=== PATIENT | male | born 1950 | race Caucasian/White ===

== ENCOUNTER 2017-03-08 15:06 | Inpatient (IN) ==
--- NOTE | 2017-03-08 15:47 | Emergency Department Note ---
Disposition Clinical Impression: Altered mental status Qualifiers: Altered mental status type: unspecified Qualified Code(s): R41.82 - Altered mental status, unspecified Chronic kidney disease Qualifiers: Chronic kidney disease stage: unspecified stage Qualified Code(s): N18.9 - Chronic kidney disease, unspecified Disposition: Admitted As Inpatient Condition: Fair Time of Disposition: 18:03 Altered Mental Status HPI - General Chief Complaint: ED Altered Mental Status Stated Complaint: AMS Time Seen by Provider: 03/08/17 15:20 Source: patient Mode of arrival: private vehicle Limitations: no limitations Nursing Notes Reviewed: Yes Vital Signs Reviewed: Yes - History of Present Illness HPI Narrative: 67-year-old male with a history of aortic vascular disease status post bypass, CAD, diabetes, hypertension presents for evaluation of altered mental status in the care of the family. Family states his last known well was approximately 2 days ago. That was last on the family saw the patient. Family became concerned earlier today when they went and to the living room and found the patient difficulty ambulating and confused with questioning. Family states that he was not acting appropriately. Patient denies any chest pain or short of breath. Family denies any fevers. Denies any abdominal pain. No nausea or vomiting. Denies any trauma. Patient is on Plavix with no other anticoagulation. Family states that symptoms have been improving. - Related Data Home Medications Medication Instructions Recorded Confirmed Ascorbate Calcium [Vitamin C] 500 mg PO DAILY 11/19/15 11/19/15 Aspirin 81 mg PO DAILY 11/19/15 11/19/15 Azelastine HCl 1 drop OP BID 11/19/15 11/19/15 Citalopram Hydrobromide 20 mg PO HS 11/19/15 11/19/15 [Citalopram HBr] Clopidogrel [Plavix] 75 mg PO DAILY 11/19/15 11/19/15 Fluticasone Propionate [Flovent 1 - 2 puff IH BID 11/19/15 11/19/15 Diskus] Linagliptin [Tradjenta] 5 mg PO DAILY 11/19/15 11/19/15 Metoprolol [Lopressor] 50 mg PO BID 11/19/15 11/19/15 Omeprazole [PriLOSEC] 20 mg PO DAILY 11/19/15 11/19/15 Rosuvastatin [Crestor] 40 mg PO DAILY 11/19/15 11/19/15 Tamsulosin [Flomax] 0.4 mg PO DAILY 11/19/15 11/19/15 Allergies Allergy/AdvReac Type Severity Reaction Status Date / Time No Known Allergies Allergy Verified 11/17/15 19:23 All systems ED: reviewed and negative except as stated. Constitutional: Reports: as per HPI. Denies: fever Eyes: Reports: as per HPI ENT ED: Reports: as per HPI Cardiovascular: Reports: as per HPI. Denies: chest pain Respiratory: Reports: as per HPI. Denies: cough, dyspnea Gastrointestinal: Reports: as per HPI. Denies: abdominal pain, nausea, vomiting Genitourinary: Reports: as per HPI Musculoskeletal: Reports: as per HPI Integumentary: Reports: as per HPI Neurological: Reports: as per HPI. Denies: headache, weakness Psychiatric: Reports: as per HPI Endocrine: Reports: as per HPI Hematological/Lymphatic: Reports: as per HPI Past Medical History - Past Medical History Medical history: Reports: coronary artery disease, diabetes, hyperlipidemia, hypertension, myocardial infarction Surgical history: Reports: cholecystectomy, vascular surgery (aortobifemoral bypass.) - Social History Smoking Status: Current every day smoker Smokeless Tobacco Status: No Alcohol use: Reports: none Drug use: Reports: none Physical Exam - General Limitations: no limitations General appearance: alert, in no apparent distress - Head Head exam: atraumatic, normocephalic, normal inspection - Eye Eye exam: Present: normal appearance, PERRL, EOMI, other (Right eye lateral gaze palsy.). Absent: miosis, mydriasis - ENT ENT exam: normal exam, mucous membranes moist - Neck Neck exam: Present: normal inspection, trachea midline - Chest Chest inspection: Present: normal inspection - Respiratory Respiratory exam: Present: normal lung sounds bilaterally - Cardiovascular Cardiovascular exam: Present: regular rate - Abdominal Exam Abdominal exam: Present: soft, Non-Tender. Absent: distention, guarding, rebound, rigidity - Extremities Exam Extremities exam: Present: normal inspection. Absent: pedal edema - Back Exam Back exam: Present: normal inspection, full ROM. Absent: tenderness - Neurological Exam Neurological exam: Present: alert, CN II-XII intact - Expanded Neurological Exam Patient oriented to: Present: person, place, time Speech: Present: fluid speech Cranial nerves: EOM function (II, III, IV, ): Normal, facial sensation (V): Normal, facial palsy (VII): Normal, spinal accessory function (XI): Normal, tongue deviation (XII): Normal Cerebellar function: finger to nose: Normal (Left-sided pressure and hand tremor ) Motor strength - LUE: 5/5 Motor strength - RUE: 5/5 Motor strength - LLE: 5/5 Motor strength - RLE: 5/5 Coma Scale Eye Opening: Spontaneous Coma Scale Motor Response: Obeys Commands Coma Scale Verbal Response: Confused Coma Scale Total: 14 - Skin Skin exam: Present: warm, dry, intact, normal color Course Course Narrative: Patient seen and examined. Patient's in no acute distress. Patient is not a stroke alert as the last known well was a couple days ago. Patient will get an extensive evaluation with neuro imaging, labs, urinalysis and disposition pending. - Reevaluation(s) Reevaluation #1: Patient seen and examined. Patient appears to be no acute distress. Patient is alert to person place time but not alert situation. Patient cannot recall why he is in the hospital. Time: 17:20 Vital Signs Temperature 98.3 F 03/08/17 15:11 Pulse Rate 108 03/08/17 15:11 Respiratory Rate 16 03/08/17 15:11 Blood Pressure 126/76 03/08/17 15:11 O2 Sat by Pulse Oximetry 95 03/08/17 15:11 Temperature 98.3 F 03/08/17 15:11 Pulse Rate 108 03/08/17 15:11 Respiratory Rate 16 03/08/17 15:11 Blood Pressure 126/76 03/08/17 15:11 O2 Sat by Pulse Oximetry 95 03/08/17 15:11 Oxygen Delivery Oxygen Delivery Room Air Altered Mental Status - MDM Narrative Medical decision making narrative: 67-year-old male presents for acute alteration in mental status. Patient was not a stroke alert as his last known well was 2 days ago. Patient does exhibit some confusion on exam. Patient's GCS of 14. Patient has no focal neurologic deficit. Patient had neuroimaging as well as a chest x-ray and laboratory evaluation. Patient's head CT shows no acute intracranial abnormality. Patient 's chest x-ray shows no acute disease. Patient's chemistries show chronic kidney disease not significantly changed from baseline. Patient's urine drug screen is negative. Patient's CBC shows no signs of leukocytosis or infection. Patient does not exhibit any meningitis signs or symptoms. The etiology of the patient's altered mental status is unclear at this time. Patient would require further evaluation in the hospital. Patient would not need further evaluation possible MRI of the brain ruling out any type ischemic event. - Lab Data Lab results reviewed: Yes I reviewed the patient's lab results. Result diagrams: 03/08/17 15:32 03/08/17 15:32 Lab Results 03/08/17 03/08/17 03/08/17 Range/Units 15:32 15:32 15:32 WBC 6.9 (4.3-11.1) K/mcL RBC 4.39 (4.19-5.50) M/mcL Hgb 14.8 (12.9-16.9) g/dL Hct 43.1 (37.5-50.1) % MCV 98.2 (83.0-100.0) fL MCH 33.7 H (28.0-33.3) pg MCHC 34.3 (31.6-35.5) g/dL RDW 12.7 (11.5-14.5) % Plt Count 115 L (140-400) K/mcL MPV 9.6 (9.4-12.4) fL Immature Gran % 0.3 (0-4) % Seg Neutrophils % 75.7 % Lymphocytes % 11.7 % Monocytes % 11.4 % Eosinophils % 0.3 % Basophils % 0.6 % Neutrophils # 5.2 (1.6-8.9) K/mcL Lymphocytes # 0.8 (0.6-4.6) K/mcL Monocytes # 0.8 (0.0-1.3) K/mcL Eosinophils # 0.0 (0.0-0.6) K/mcL Basophils # 0.0 (0.0-0.2) K/mcL PT 12.1 (9.4-12.1) Seconds INR 1.1 APTT 26.4 (26.0-36.0) Seconds Sodium 138 (136-145) mEq/L Potassium 4.0 (3.5-5.1) mEq/L Chloride 105 (98-107) mEq/L Carbon Dioxide 23 (23-29) mEq/L BUN 22 (8-23) mg/dL Creatinine 1.85 H (0.70-1.30) mg/dL Est GFR ( Amer) 44 L (> 60) Est GFR (Non-Af Amer) 36 L (> 60) BUN/Creatinine Ratio 12 (6-26) Glucose 162 H (70-105) mg/dL Calculated Osmolality 293 (280-300) Calcium 9.9 (8.6-10.3) mg/dL Total Bilirubin 0.9 (0.3-1.0) mg/dL Direct Bilirubin 0.2 (0.0-0.2) mg/dL Indirect Bilirubin 0.7 (0.0-1.2) mg/dL AST 15 (13-39) Units/L ALT 11 (7-52) Units/L Alkaline Phosphatase 69 (34-104) Units/L Ammonia (16-53) mcmol/L Creatine Kinase 96 (30-223) Units/L Troponin I (< 0.04) ng/mL Serum Total Protein 7.2 (6.4-8.9) g/dL Albumin 4.0 (3.5-5.7) g/dL Globulin 3.2 (2.4-3.5) g/dL Albumin/Globulin Ratio 1.3 (1.1-2.2) TSH 0.319 L (0.340-5.600) mcIU/mL Urine Color (Yellow) Urine Clarity (Clear) Urine pH (5.0-8.0) pH Units Ur Specific [place] (1.010-1.025) Urine Protein (Neg-Trace) mg/dL Urine Glucose (UA) (Normal) mg/dL Urine Ketones (Negative) mg/dL Urine Blood (Negative) Urine Nitrite (Negative) Urine Bilirubin (Negative) Urine Urobilinogen (Normal) mg/dL Ur Leukocyte Esterase (Negative) Urine Microscopic RBC (0-3) per hpf Urine Microscopic WBC (0-3) per hpf Ur Squamous Epith Cells (None-Few) per lpf Urine Bacteria (None-Few) per hpf Hyaline Casts (None-Few) per lpf Ur Culture Indicated? (NO) Salicylates < 5.0 L (15.0-30.0) mg/dL Urine Opiates Screen (Ljgtlq=820) ng/mL Acetaminophen < 1.0 L (10-30) mcg/mL Ur Barbiturates Screen (Zxbenk=312) ng/mL Ur Phencyclidine Scrn (Cutoff=25) ng/mL Ur Amphetamines Screen ([place]=6844) ng/mL U Benzodiazepines Scrn (Lkuirz=039) ng/mL Urine Cocaine Screen (Cutoff= 300) ng/mL U Marijuana (THC) Screen (Cutoff = 50) ng/mL Ethyl Alcohol < 10 (0-10) mg/dL 03/08/17 03/08/17 03/08/17 Range/Units 15:32 15:32 16:40 WBC (4.3-11.1) K/mcL RBC (4.19-5.50) M/mcL Hgb (12.9-16.9) g/dL Hct (37.5-50.1) % MCV (83.0-100.0) fL MCH (28.0-33.3) pg MCHC (31.6-35.5) g/dL RDW (11.5-14.5) % Plt Count (140-400) K/mcL MPV (9.4-12.4) fL Immature Gran % (0-4) % Seg Neutrophils % % Lymphocytes % % Monocytes % % Eosinophils % % Basophils % % Neutrophils # (1.6-8.9) K/mcL Lymphocytes # (0.6-4.6) K/mcL Monocytes # (0.0-1.3) K/mcL Eosinophils # (0.0-0.6) K/mcL Basophils # (0.0-0.2) K/mcL PT (9.4-12.1) Seconds INR APTT (26.0-36.0) Seconds Sodium (136-145) mEq/L Potassium (3.5-5.1) mEq/L Chloride (98-107) mEq/L Carbon Dioxide (23-29) mEq/L BUN (8-23) mg/dL Creatinine (0.70-1.30) mg/dL Est GFR ( Amer) (> 60) Est GFR (Non-Af Amer) (> 60) BUN/Creatinine Ratio (6-26) Glucose (70-105) mg/dL Calculated Osmolality (280-300) Calcium (8.6-10.3) mg/dL Total Bilirubin (0.3-1.0) mg/dL Direct Bilirubin (0.0-0.2) mg/dL Indirect Bilirubin (0.0-1.2) mg/dL AST (13-39) Units/L ALT (7-52) Units/L Alkaline Phosphatase (34-104) Units/L Ammonia 32 (16-53) mcmol/L Creatine Kinase (30-223) Units/L Troponin I < 0.03 (< 0.04) ng/mL Serum Total Protein (6.4-8.9) g/dL Albumin (3.5-5.7) g/dL Globulin (2.4-3.5) g/dL Albumin/Globulin Ratio (1.1-2.2) TSH (0.340-5.600) mcIU/mL Urine Color Dark Yellow (Yellow) Urine Clarity Clear (Clear) Urine pH 5.5 (5.0-8.0) pH Units Ur Specific [place] 1.026 H (1.010-1.025) Urine Protein 30 H (Neg-Trace) mg/dL Urine Glucose (UA) 100 H (Normal) mg/dL Urine Ketones Negative (Negative) mg/dL Urine Blood Small H (Negative) Urine Nitrite Negative (Negative) Urine Bilirubin Small H (Negative) Urine Urobilinogen Normal (Normal) mg/dL Ur Leukocyte Esterase Negative (Negative) Urine Microscopic RBC 15-30 H (0-3) per hpf Urine Microscopic WBC 0-3 (0-3) per hpf Ur Squamous Epith Cells None Seen (None-Few) per lpf Urine Bacteria None Seen (None-Few) per hpf Hyaline Casts None Seen (None-Few) per lpf Ur Culture Indicated? NO (NO) Salicylates (15.0-30.0) mg/dL Urine Opiates Screen ([place]uhl[place]=417) ng/mL Acetaminophen (10-30) mcg/mL Ur Barbiturates Screen (Eypyrz=695) ng/mL Ur Phencyclidine Scrn (Cutoff=25) ng/mL Ur Amphetamines Screen (Wijbzp=9361) ng/mL U Benzodiazepines Scrn (Neugra=461) ng/mL Urine Cocaine Screen (Cutoff= 300) ng/mL U Marijuana (THC) Screen (Cutoff = 50) ng/mL Ethyl Alcohol (0-10) mg/dL //17 Range/Units 16:40 WBC (4.3-11.1) K/mcL RBC (4.19-5.50) M/mcL Hgb (12.9-16.9) g/dL Hct (37.5-50.1) % MCV (83.0-100.0) fL MCH (28.0-33.3) pg MCHC (31.6-35.5) g/dL RDW (11.5-14.5) % Plt Count (140-400) K/mcL MPV (9.4-12.4) fL Immature Gran % (0-4) % Seg Neutrophils % % Lymphocytes % % Monocytes % % Eosinophils % % Basophils % % Neutrophils # (1.6-8.9) K/mcL Lymphocytes # (0.6-4.6) K/mcL Monocytes # (0.0-1.3) K/mcL Eosinophils # (0.0-0.6) K/mcL Basophils # (0.0-0.2) K/mcL PT (9.4-12.1) Seconds INR APTT (26.0-36.0) Seconds Sodium (136-145) mEq/L Potassium (3.5-5.1) mEq/L Chloride (98-107) mEq/L Carbon Dioxide (23-29) mEq/L BUN (8-23) mg/dL Creatinine (0.70-1.30) mg/dL Est GFR ( Amer) (> 60) Est GFR (Non-Af Amer) (> 60) BUN/Creatinine Ratio (6-26) Glucose (70-105) mg/dL Calculated Osmolality (280-300) Calcium (8.6-10.3) mg/dL Total Bilirubin (0.3-1.0) mg/dL Direct Bilirubin (0.0-0.2) mg/dL Indirect Bilirubin (0.0-1.2) mg/dL AST (13-39) Units/L ALT (7-52) Units/L Alkaline Phosphatase (34-104) Units/L Ammonia (16-53) mcmol/L Creatine Kinase (30-223) Units/L Troponin I (< 0.04) ng/mL Serum Total Protein (6.4-8.9) g/dL Albumin (3.5-5.7) g/dL Globulin (2.4-3.5) g/dL Albumin/Globulin Ratio (1.1-2.2) TSH (0.340-5.600) mcIU/mL Urine Color (Yellow) Urine Clarity (Clear) Urine pH (5.0-8.0) pH Units Ur Specific [place] (1.010-1.025) Urine Protein (Neg-Trace) mg/dL Urine Glucose (UA) (Normal) mg/dL Urine Ketones (Negative) mg/dL Urine Blood (Negative) Urine Nitrite (Negative) Urine Bilirubin (Negative) Urine Urobilinogen (Normal) mg/dL Ur Leukocyte Esterase (Negative) Urine Microscopic RBC (0-3) per hpf Urine Microscopic WBC (0-3) per hpf Ur Squamous Epith Cells (None-Few) per lpf Urine Bacteria (None-Few) per hpf Hyaline Casts (None-Few) per lpf Ur Culture Indicated? (NO) Salicylates (15.0-30.0) mg/dL Urine Opiates Screen Negative (Kskhmr=844) ng/mL Acetaminophen (10-30) mcg/mL Ur Barbiturates Screen Negative (Gxfsei=760) ng/mL Ur Phencyclidine Scrn Negative (Cutoff=25) ng/mL Ur Amphetamines Screen Negative (Gtcazs=4778) ng/mL U Benzodiazepines Scrn Negative (Jieeru=649) ng/mL Urine Cocaine Screen Negative (Cutoff= 300) ng/mL U Marijuana (THC) Screen Negative (Cutoff = 50) ng/mL Ethyl Alcohol (0-10) mg/dL - Radiology Data Radiology results reviewed: Yes I reviewed the patient's radiology results. Chest X-Ray 03/08/17 15:37 IMPRESSION: No acute cardiopulmonary disease. D/ / Bossman Gomez MD / Bossman Gomez MD Interpreting Provider: Bossman Gomez MD Head CT 03/08/17 15:37 IMPRESSION: No acute intracranial abnormality is detected. Moderate age related changes in the brain are noted. Brain MRI would more sensitively detect subtle changes of the brain including ischemia and should be considered if symptoms persist. D/ / Felix Gant MD / Felix Gant MD Interpreting Provider: Felix Gant MD - EKG Data EKG attestation: Yes I reviewed and interpreted this EKG. EKG shows normal: sinus rhythm Rate: normal Rhythm: NSR [place]/QRS: normal Q waves: aVR, v1 Interpretation: no acute changes, nonspecific ST-T wave changes TPA Checklist - LKW: 3-4.5 hrs Add. Warnings/Precautions Patient/family understanding: The patient/family members have been counseled and understood the risk, benefit , and alternatives of treatment. Rafat - Rafat Situation: Demographics Background: Presenting Complaint Assessment: Vital Signs, Course and respsone to treatment, Patient/Family Expectation Recommendation: Barrier(s) to disposition, Recommendation based on pending studies, treatments, or consults Rafat Report Given to: Dr. Donavon Douglass Repor Time: 17:58 Attestation Statement - Attestation Attestation: I examined this patient and my medical decision-making was reviewed with the Resident Physician. I agree with the documented findings, disposition and treatment plan as described except to the extent set forth below. patient with ams, denies ETOH or other drug use. No neuro deficits on arrival. Plan to admit for further work up for AMS. No metabolic derangement identified.
[2017-03-08 16:02] LABS: Basophils % 0.6 %; Eosinophils % 0.3 %; Hematocrit 43.1 % (37.5-50.1); Hemoglobin 14.8 g/dL (12.9-16.9); Immature Granulocytes % 0.3 % (0-4); Lymphocytes % 11.7 %; Mean Corpuscular HGB Conc 34.3 g/dL (31.6-35.5); Mean Corpuscular Hemoglobin 33.7 pg (28.0-33.3); Mean Corpuscular Volume 98.2 fL (83.0-100.0); Mean Platelet Volume 9.6 fL (9.4-12.4); Monocytes % 11.4 %; Platelet Count 115 K/mcL (140-400); Red Blood Count 4.39 M/mcL (4.19-5.50); Red Cell Distribution Width 12.7 % (11.5-14.5); Segmented Neutrophils % 75.7 %
[2017-03-08 16:03] LABS: Lymphocytes # 0.8 K/mcL (0.6-4.6); Monocytes # 0.8 K/mcL (0.0-1.3); Neutrophils # 5.2 K/mcL (1.6-8.9)
[2017-03-08 16:09] LABS: INR 1.1; Prothrombin Time 12.1 Seconds (9.4-12.1)
[2017-03-08 16:11] LABS: Alanine Aminotransferase 11 Units/L (7-52); Albumin/Globulin Ratio 1.3 (1.1-2.2); Alkaline Phosphatase 69 Units/L (34-104); Aspartate Amino Transferase 15 Units/L (13-39); BUN/Creatinine Ratio 12 (6-26); Bilirubin,Direct 0.2 mg/dL (0.0-0.2); Bilirubin,Indirect 0.7 mg/dL (0.0-1.2); Bilirubin,Total 0.9 mg/dL (0.3-1.0); Blood Urea Nitrogen 22 mg/dL (8-23); Calcium 9.9 mg/dL (8.6-10.3); Carbon Dioxide 23 mEq/L (23-29); Chloride 105 mEq/L (98-107); Creatine Kinase 96 Units/L (30-223); Globulin 3.2 g/dL (2.4-3.5); Glucose 162 mg/dL (70-105); Osmolality,Calculated 293 (280-300); Sodium 138 mEq/L (136-145); Total Protein 7.2 g/dL (6.4-8.9); eGFR For African Americans 44 (> 60); eGFR For Non-African Americans 36 (> 60)
[2017-03-08 16:12] LABS: Activated Partial Thrombo Time 26.4 Seconds (26.0-36.0)
[2017-03-08 16:57] LABS: Bilirubin,Urine Small (Negative); Blood,Urine Small (Negative); Clarity,Urine Clear (Clear); Color,Urine Dark Yellow (Yellow); Glucose,Urine (UA) 100 mg/dL (Normal); Ketones,Urine Negative (Negative); Leukocyte Esterase,Urine Negative (Negative); Nitrite,Urine Negative (Negative); PH,Urine 5.5 pH Units (5.0-8.0); Protein,Urine 30 mg/dL (Neg-Trace); Specific Gravity,Urine 1.026 (1.010-1.025); Urobilinogen,Urine Normal (Normal)
[2017-03-08 16:59] LABS: Bacteria,Urine None Seen per hpf (None-Few); Hyaline Casts,Urine None Seen per lpf (None-Few); RBC,Urine 15-30 per hpf (0-3); Squamous Epithelial Cell,Urine None Seen per lpf (None-Few); WBC,Urine 0-3 per hpf (0-3)
[2017-03-08 17:04] LABS: Amphetamine Screen,Urine Negative ng/mL (Cutoff=1000); Barbiturate Screen,Urine Negative ng/mL (Cutoff=200); Benzodiazepines Screen,Urine Negative ng/mL (Cutoff=200); Cannabinoid Screen,Urine Negative ng/mL (Cutoff = 50); Cocaine Screen,Urine Negative ng/mL (Cutoff= 300); Opiate Screen,Urine Negative ng/mL (Cutoff=300); Phencyclidine Screen,Urine Negative ng/mL (Cutoff=25)
[2017-03-08 17:33] LABS: Acetaminophen < 1.0 mcg/mL (10-30); Ethanol < 10 mg/dL (0-10); Salicylate < 5.0 mg/dL (15.0-30.0)
[2017-03-08 17:41] LABS: Thyroid Stimulating Hormone 0.319 mcIU/mL (0.340-5.600)
--- NOTE | 2017-03-08 18:19 | Internal Med History&Physical ---
Date of Encounter: 03/09/17 Time of Encounter: 18:17 Assessment and Plan (1) Altered mental status Current visit: Yes Status: Acute ASSESSMENT: -Change in mental status , now on exam patient is alert and oriented to place and time and person. DD *Infection- *Volume depletion *TIA *CVA *Seizure PLAN: -Swallow evaluation at bedside- -CPP x 2 q 8 hr -EKG now and in AM -ASA -UA -Tylenol 650 mg PO q 4-6 hr PRN headache -Vasotec 1.25 mg IV q 6 hr PRN SBP> 160 Qualifiers: Altered mental status type: unspecified Qualified Code(s): R41.82 - Altered mental status, unspecified (2) Chronic kidney disease Current visit: Yes Status: Acute Creatinine at baseline, continue to monitor, strict I&O's, renal dose of medicationa and avoid nephrotoxins drugs Qualifiers: Chronic kidney disease stage: unspecified stage Qualified Code(s): N18.9 - Chronic kidney disease, unspecified (3) COPD (chronic obstructive pulmonary disease) Current visit: No Status: Chronic Continue home medication after testing for bedside swallow evaluation, when necessary DuoNeb Qualifiers: (4) Tobacco use Current visit: No Status: Chronic We will start nicotine patch, patient was counseled about smoking. (5) DVT prophylaxis Current visit: No Status: Acute Internal Medicine - H&P: HPI History of present illness: 67-year-old male with a history of aortic vascular disease status post bypass, CAD, diabetes, hypertension presents for evaluation of altered mental status in the care of the family. Family states his they last saw him two days prior to what they described as being confused and has difficulty ambulating and not acting appropriately. The patient was evaluated by the ER staff and appears to be neurologically intact , also he is alert and oriented to place and time and person however he was admitted for further evaluation and management to rule out TIA. Past Med Surg Social Fam HX - Past Medical History Medical history: coronary artery disease, diabetes, hyperlipidemia, hypertension , myocardial infarction - Past Surgical History Surgical History: cholecystectomy, vascular surgery (aortobifemoral bypass.) - Social History Smoking Status: Current every day smoker Smokeless Tobacco Status: No Alcohol use: none Drug use: none - Family History Mother Hx Family Cardiac Disorders: Yes Father Living Status: Age at : 40 Cause of : [place] [facility] - H&P: Meds Ascorbate Calcium [Vitamin C] 500 mg PO DAILY 11/19/15 [History] Aspirin 81 mg PO DAILY 11/19/15 [History] Azelastine HCl 1 drop OP BID 11/19/15 [History] Citalopram Hydrobromide [Citalopram HBr] 20 mg PO HS 11/19/15 [History] Clopidogrel [Plavix] 75 mg PO DAILY 11/19/15 [History] Fluticasone Propionate [Flovent Diskus] 1 - 2 puff IH BID 11/19/15 [History] Linagliptin [Tradjenta] 5 mg PO DAILY 11/19/15 [History] Metoprolol [Lopressor] 50 mg PO BID 11/19/15 [History] Omeprazole [PriLOSEC] 20 mg PO DAILY 11/19/15 [History] Rosuvastatin [Crestor] 40 mg PO DAILY 11/19/15 [History] Tamsulosin [Flomax] 0.4 mg PO DAILY 11/19/15 [History] Albuterol Sulfate [Proair Hfa] 2 puff IH Q6H PRN 03/09/17 [History] Gabapentin [Neurontin] 300 mg PO HS 03/09/17 [History] 3 Allergy/AdvReac Type Severity Reaction Status Date / Time No Known Allergies Allergy Verified 11/17/15 19:23 All Systems PM: A 10-system review of systems was performed and is negative for pertinent findings except as documented above in the HPI. - Constitutional Constitutional: no chills, no fever(s), no night sweats - Cardiovascular Cardiovascular ROS IM: no chest pain, no diaphoresis, no dyspnea, no lightheadedness, no palpitations, no syncope - Respiratory Respiratory: no cough, no dyspnea, no wheezing, no excessive phlegm production - Gastrointestinal Gastrointestinal: no abdominal pain, no diarrhea, no hematemesis, no hematochezia, no melena, no nausea, no vomiting - Neurological Neurological ROS: no confusion, no convulsions, no focal weakness, no numbness, no tingling, no tremor(s) - Constitutional Vitals: Temp Pulse Resp BP Pulse Ox 98.3 F 108 16 124/76 95 03/08/17 15:11 03/08/17 15:11 03/08/17 18:04 03/08/17 18:04 03/08/17 15:11 General appearance: Present: A&O X 3 - Head Head exam: Present: atraumatic, normocephalic - Neck Neck exam general surgery: Present: supple, trachea midline. Absent: lymphadenopathy - Respiratory Respiratory exam: Present: CTAB. Absent: accessory muscle use, rales, rhonchi, wheezes - Cardiovascular Cardiovascular exam: Present: RRR, +S1, +S2. Absent: diastolic murmur, gallop, rubs, systolic murmur - GI/Abdominal GI/Abdominal exam: Present: normal bowel sounds, soft, no peritoneal signs. Absent: distended, tenderness - Neurological Exam Neurological exam: Present: CN II-XII intact, oriented X3, no focal deficits. Absent: pronater drift, facial droop, speech deficit Internal Med - H&P Results - Labs CBC & Chem 7: 03/09/17 03:55 03/09/17 03:55
[2017-03-08] MEDS ORDERED: Naloxone 0.4 MG/ML INJ IVP PRN (19:52)
[2017-03-08] MEDS: Nicotine 21 MG PATCH.TD24 TD SCH (21:25)
[2017-03-09 05:06] LABS: Basophils % 0.4 %; Hematocrit 41.4 % (37.5-50.1); Immature Granulocytes % 0.4 % (0-4); Lymphocytes # 1.3 K/mcL (0.6-4.6); Lymphocytes % 23.8 %; Mean Corpuscular HGB Conc 33.8 g/dL (31.6-35.5); Mean Corpuscular Hemoglobin 33.6 pg (28.0-33.3); Mean Corpuscular Volume 99.3 fL (83.0-100.0); Monocytes # 0.7 K/mcL (0.0-1.3); Monocytes % 12.6 %; Neutrophils # 3.5 K/mcL (1.6-8.9); Platelet Count 104 K/mcL (140-400); Red Blood Count 4.17 M/mcL (4.19-5.50); Red Cell Distribution Width 12.7 % (11.5-14.5); Segmented Neutrophils % 62.8 %
[2017-03-09 05:23] LABS: Albumin 3.8 g/dL (3.5-5.7); Albumin/Globulin Ratio 1.3 (1.1-2.2); Bilirubin,Direct 0.1 mg/dL (0.0-0.2); Bilirubin,Indirect 0.7 mg/dL (0.0-1.2); Bilirubin,Total 0.8 mg/dL (0.3-1.0); Calcium 9.4 mg/dL (8.6-10.3); Potassium 3.7 mEq/L (3.5-5.1); Total Protein 6.8 g/dL (6.4-8.9)
[2017-03-09] MEDS: Aspirin 81 MG TAB.CHEW PO SCH (07:47)
--- NOTE | 2017-03-09 10:33 | Internal Med Progress Note ---
Date of Encounter: 03/09/17 Time of Encounter: 10:30 - Assessment and plan (1) Altered mental status Current Visit: Yes Status: Acute Assessment and plan: Patient seems to be alert and oriented 3 now he is back to baseline. CT head is negative. We will check an MRI brain. I will order echo with bubble study. We will check carotid ultrasounds. We will get physical therapy see the patient. I see neurology has been consulted on admission. The patient is on aspirin and Plavix and statin. We will see what neurology says. Continue with neuro checks. check A1c and lipid panel. Chart reviewed by EHR and only meets observation criteria. will change in EMR Qualifiers: Altered mental status type: transient alteration of awareness Qualified Code(s): R40.4 - Transient alteration of awareness (2) CAD (coronary artery disease) Current Visit: Yes Status: Acute Assessment and plan: Continue with aspirin and Plavix and a beta jamel. The patient is also on statin Qualifiers: Coronary Disease-Associated Artery/Lesion type: bypass graft [place] vs. transplanted heart: [place] heart Associated angina: without angina Qualified Code(s): I25.810 - Atherosclerosis of coronary artery bypass graft(s) without angina pectoris (3) GERD (gastroesophageal reflux disease) Current Visit: Yes Status: Acute Assessment and plan: Continue PPI. Qualifiers: Esophagitis presence: without esophagitis Qualified Code(s): K21.9 - Gastro -esophageal reflux disease without esophagitis (4) CKD (chronic kidney disease) stage 3, GFR 30-59 ml/min Current Visit: No Status: Chronic Assessment and plan: Around baseline. We will continue to monitor. Labs in the morning. (5) DVT prophylaxis Current Visit: No Status: Acute Assessment and plan: Patient is and ambulatory We will add Lovenox. - Subjective Interval history: He was seen and examined by me. Apparently he was admitted with an episode of confusion. I did speak to his daughter and the patient is moaning. He is showing no signs of confusion. Apparently his daughter's fiance went to see him at home as the patient lives alone and he noted that he was staring into space and was incoherent. There was no facial droop noted. The patient at baseline lives alone and is independent of daily living activities. He is alert and oriented 3 at baseline. - Constitutional Vitals: Temp Pulse Resp BP Pulse Ox 99.3 F 100 16 108/71 96 03/09/17 06:40 03/09/17 06:40 03/09/17 06:40 03/09/17 06:40 03/09/17 06:40 General appearance: Present: A&O X 3 Exam: GEN: NAD CVS: RRR. S1, S2, No m/r/g RESP: CTAB ABD: Soft, NT, ND, +BS EXT: No edema. 2+ DP. No rashes NEURO: Cranial nerves II through XII are intact. His no focal motor or sensory deficits me. Internal Medicine: Result - Labs CBC & Chem 7: 03/09/17 03:55 03/09/17 03:55 Labs: Short CBC 03/09/17 Range/Units 03:55 WBC 5.6 (4.3-11.1) K/mcL Hgb 14.0 (12.9-16.9) g/dL Hct 41.4 (37.5-50.1) % Plt Count 104 L (140-400) K/mcL Neutrophils # 3.5 (1.6-8.9) K/mcL BMP 03/09/17 03:55 Sodium 138 Potassium 3.7 Chloride 107 Carbon Dioxide 24 BUN 22 Creatinine 1.66 H Glucose 122 H Calcium 9.4 Cardiac Enzymes 03/08/17 Range/Units 22:17 Troponin I 0.03 (< 0.04) ng/mL Liver Function 03/09/17 Range/Units 03:55 Total Bilirubin 0.8 (0.3-1.0) mg/dL Direct Bilirubin 0.1 (0.0-0.2) mg/dL AST 16 (13-39) Units/L ALT 9 (7-52) Units/L Alkaline Phosphatase 63 (34-104) Units/L Albumin 3.8 (3.5-5.7) g/dL - ABG Interpretation ABG results: PT/INR, D-dimer PT 12.1 Seconds (9.4-12.1) 03/08/17 15:32 Consult Discharge Plan - Plan Referrals: Rod Knapp MD [Primary Care Provider] -
[2017-03-09 11:19] LABS: Hemoglobin A1C 5.7 %
[2017-03-09 11:22] LABS: Chol/HDL Ratio 5.9 (0-4.9)
[2017-03-09 11:29] LABS: Triiodothyronine (T3) Free 2.69 pg/mL (2.50-3.90)
[2017-03-09 11:34] LABS: Triiodothyronine (T3) Total 0.68 ng/mL (0.87-1.78)
[2017-03-09] MEDS ORDERED: *HR* Dextrose 50 % in Water (Syg) 50 ML SYRINGE IVP PRN (12:02)
[2017-03-09] MEDS ORDERED: D5% in Water 1,000 ML IVC PRN (12:02)
[2017-03-09] MEDS ORDERED: Dextrose Gel 15 GM PO PRN ×2 (12:02)
--- NOTE | 2017-03-09 16:50 | Electrocardiograph Report ---
[address] [address] Test Date: 2017-03-08 Pat Name: Won Gee Department: 103 Room: 3A11 Gender: M [employer] Des[employer] Hand: : [id number] Requested By: Jermaine Middleton Order Number: [id number] Reading MD: Wilbur Stewart MD Measurements Intervals [place] Rate: 87 P: 60 TN: 143 QRS: 30 QRSD: 69 T: 38 QT: 265 QTc: 310 Interpretive Statements SINUS RHYTHM WITH SINUS ARRHYTHMIA Electronically Signed On 03-09-2017 16:48:54 EST by Wilbur Stewart MD
[2017-03-09] MEDS ORDERED: Ondansetron 4 MG/2 ML VIAL IVP PRN (17:00)
--- NOTE | 2017-03-09 17:01 | Neurology - Consult Note ---
Date of Encounter: 03/09/17 Time of Encounter: 16:56 Assessment and Plan (1) Altered mental status Current Visit: Yes Status: Acute Certainly the altered mental status is not caused by CVA with negative MRI of brain. He does not have focal neurological deficits and seemed weakness all over therefore it is also unlikely a TIA caused his symptoms. No evidence of seizure and although he may have staring spells a seizure disorder is unlikely. He looks encephalopathic to me. He has indifferent affect and has heightened DTRs which is consistent with diffuse encephalopathy. He does have multiple medical problems especialy CKD, and COPD which may likely be contributing. Agree with echo and carotid artery duplex and also an routine EEG in AM. At the time of this interview, while we discussing his current illness, he suddenly vomited with no significant warning. he admits some headaches and neck pain but tells me that this is chronic in nature. He is able to bend his head and touch his chest with the chin. No evidence of BANK CLERK infection. Please continue medical and supportive care. Qualifiers: Altered mental status type: transient alteration of awareness Qualified Code(s): R40.4 - Transient alteration of awareness History of Present Illness Chief complaint: Confusion HPI: Mr. Gee is a 67 year old male with PMH significant for CKD, COPD CAD who was found to be confused and weak. Patient lives alone and his son in law went yesterday to his house to deliver some food to him and he was not answering. When finally entered the room that he was seemed confused and did not know what was going on. He was noticed to be weakness in his legs and was shaking in his legs in standing position. he was brought to the hospital for evaluation for possible CVA. MRI of brain showed no acute intracranial abnormality. It was reported that his mental status resolved upon admission. However, he just vomited while being examined. He has also admits some headaches only when being asked. Past Med Surg Social Fam HX - Past Medical History Medical history: coronary artery disease, diabetes, hyperlipidemia, hypertension , myocardial infarction - Past Surgical History Surgical History: cholecystectomy, vascular surgery (aortobifemoral bypass.) - Social History Smoking Status: Current every day smoker Packs per day: 1.5 Smokeless Tobacco Status: No Alcohol use: none Drug use: none - Family History Father Living Status: Age at : 40 Cause of : Gun shot in [place]iance Mother Living Status: Age at : 63 Cause of : Emphysema Hx Family Cardiac Disorders: Yes Hx Family Respiratory Disorders: Yes (COPD) Hx Family Cancer: No Hx Family Endocrine Disorder: Yes Hx Family Musculoskeletal Disorders: Yes (Arthritis) Hx Family Neuromuscular Disorders: No Medications and Allergies Ascorbate Calcium [Vitamin C] 500 mg PO DAILY 11/19/15 [History] Aspirin 81 mg PO DAILY 11/19/15 [History] Azelastine HCl 1 drop OP BID 11/19/15 [History] Citalopram Hydrobromide [Citalopram HBr] 20 mg PO HS 11/19/15 [History] Clopidogrel [Plavix] 75 mg PO DAILY 11/19/15 [History] Linagliptin [Tradjenta] 5 mg PO DAILY 11/19/15 [History] Metoprolol [Lopressor] 50 mg PO BID 11/19/15 [History] Omeprazole [PriLOSEC] 20 mg PO DAILY 11/19/15 [History] Rosuvastatin [Crestor] 40 mg PO DAILY 11/19/15 [History] Tamsulosin [Flomax] 0.4 mg PO DAILY 11/19/15 [History] Albuterol Sulfate [Proair Hfa] 2 puff IH Q6H PRN 03/09/17 [History] Fluticasone Propionate [Flovent Hfa] 220 mcg IH BID 03/09/17 [History] Gabapentin [Neurontin] 300 mg PO HS 03/09/17 [History] 3 Allergy/AdvReac Type Severity Reaction Status Date / Time No Known Allergies Allergy Verified 11/17/15 19:23 All Systems: A 10-system review of systems was performed and is negative for pertinent findings except as documented above in the HPI. Physical Examination - Vital Signs Vital Signs: Initial Vital Signs Temp Pulse Resp BP Pulse Ox 98.3 F 108 16 126/76 95 03/08/17 15:11 03/08/17 15:11 03/08/17 15:11 03/08/17 15:11 03/08/17 15:11 - Constitutional General appearance: chronically ill - Neurologic Detailed motor examination: full strength in all major muscle groups Motor examination - right side: 07/17: deltoids, biceps, triceps, wrist flexion, wrist extension, chair pad maker, hip flexors, tibialis Anterior, quadriceps, toe extension (EHL), plantarflexion Motor examination - left side: 5/5: deltoids, biceps, triceps, wrist flexion, wrist extension, hip flexors, chair pad maker, quadriceps, tibialis Anterior, toe extension (EHL), plantarflexion Detailed sensory examination: intact Reflexes: Biceps: 3+, Triceps: 3+, Brachioradialis: 3+, Patella: 3+, Achilles: 3 + Mental Status Examination: awake, alert, oriented to person, oriented to place, oriented to time, follows commands appropriately, answers questions appropriately, no agnosia, no aphasia, no aproxia Cranial nerve examination: PERRL, EOMI, visual stewart intact, corneal reflexes brisk symmetrically, sensory to face intact, mastication intact, no facial asymmetry is present, no dysarthria, hearing is intact symmetrically, soft palate elevates bilaterally upon phonation, gag reflex intact, flexes SCM and trapezius muscles symmetrically with full power, tongue protrudes midline, no atrophy or facial fasiculations present Cerebellar examination: no dysmetria, performs finger to nose and heel to luna symmetrically without ataxia, no gait ataxia, no truncal ataxia, no difficulty with rapid alternating movements Results - Laboratory Findings CBC and BMP: 03/09/17 03:55 03/09/17 03:55 Abnormal lab findings: Abnormal lab results RBC 4.17 M/mcL (4.19-5.50) L 03/09/17 03:55 MCH 33.6 pg (28.0-33.3) H 03/09/17 03:55 Plt Count 104 K/mcL (140-400) L 03/09/17 03:55 Creatinine 1.66 mg/dL (0.70-1.30) H 03/09/17 03:55 Est GFR ( Amer) 50 (> 60) L 03/09/17 03:55 Est GFR (Non-Af Amer) 41 (> 60) L 03/09/17 03:55 Glucose 122 mg/dL (70-105) H 03/09/17 03:55 POC Glucose 105 (58-89) H 03/09/17 11:46 Hemoglobin A1c 5.7 % (-5.6) H 03/09/17 03:55 LDL Cholesterol, Calc 108 mg/dL (0-99) H 03/09/17 03:55 HDL Cholesterol 28 mg/dL (40-59) L 03/09/17 03:55 Cholesterol/HDL Ratio 5.9 (0-4.9) H 03/09/17 03:55 TSH 0.319 mcIU/mL (0.340-5.600) L 03/08/17 15:32 Total T3 0.68 ng/mL (0.87-1.78) L 03/09/17 03:55 Ur Specific [place] 1.026 (1.010-1.025) H 03/08/17 16:40 Urine Protein 30 mg/dL (Neg-Trace) H 03/08/17 16:40 Urine Glucose (UA) 100 mg/dL (Normal) H 03/08/17 16:40 Urine Blood Small (Negative) H 03/08/17 16:40 Urine Bilirubin Small (Negative) H 03/08/17 16:40 Urine Microscopic RBC 15-30 per hpf (0-3) H 03/08/17 16:40 Salicylates < 5.0 mg/dL (15.0-30.0) L 03/08/17 15:32 Acetaminophen < 1.0 mcg/mL (10-30) L 03/08/17 15:32 Consult Discharge Plan - Plan Referrals: Rod Knapp MD [Primary Care Provider] -
[2017-03-09] MEDS: Beclomethasone 80mcg MDI IH SCH (19:59)
[2017-03-09] MEDS: Nicotine 21 MG PATCH.TD24 TD SCH (20:30)
[2017-03-10] MEDS: Insulin LISPRO 300 UNITS/3 ML VIAL SQ SCH ×4 (04:48→18:20)
[2017-03-10] MEDS: *HR* Enoxaparin 40 MG/0.4 ML SYRINGE SQ SCH (05:25)
[2017-03-10] MEDS: Beclomethasone 80mcg MDI IH SCH ×2 (07:48→22:17)
[2017-03-10] MEDS: Aspirin 81 MG TAB.CHEW PO SCH (08:49)
[2017-03-10 09:04] LABS: Basophils % 0.1 %; Hemoglobin 14.3 g/dL (12.9-16.9); Immature Granulocytes % 0.4 % (0-4); Lymphocytes # 1.1 K/mcL (0.6-4.6); Lymphocytes % 15.8 %; Mean Corpuscular Hemoglobin 33.6 pg (28.0-33.3); Mean Corpuscular Volume 98.8 fL (83.0-100.0); Mean Platelet Volume 9.4 fL (9.4-12.4); Monocytes # 0.8 K/mcL (0.0-1.3); Monocytes % 11.3 %; Platelet Count 108 K/mcL (140-400); Red Blood Count 4.25 M/mcL (4.19-5.50); Red Cell Distribution Width 12.3 % (11.5-14.5); Segmented Neutrophils % 72.4 %
[2017-03-10 09:16] LABS: Calcium 9.1 mg/dL (8.6-10.3)
[2017-03-10] MEDS: Levofloxacin 500 MG/100 ML 500 MG/100 ML BAG IVPB SCH (10:47)
--- NOTE | 2017-03-10 13:17 | Internal Med Progress Note ---
Date of Encounter: 03/10/17 Time of Encounter: 09:20 - Assessment and plan (1) Altered mental status Current Visit: Yes Status: Acute Assessment and plan: This seems to have resolved. It is likely coming from an infectious etiology. His workup for stroke has been negative. There was an incidental finding of a PFO noted on echocardiogram. Neurology is seeing and I have ordered an EEG this morning. We will treat the patient's infectious etiology and monitor him neurologically throughout his stay. I anticipate the patient may be able to discharge tomorrow after his workup is done. I have started him on Tamiflu as well as IV Levaquin for the pneumonia and the positive influenza. The patient is on aspirin and Plavix and statin. Qualifiers: Altered mental status type: transient alteration of awareness Qualified Code(s): R40.4 - Transient alteration of awareness (2) Pneumonia and influenza Current Visit: Yes Status: Acute Assessment and plan: The patient tested positive for influenza A. I have added Tamiflu. Check urine strep and Legionella. I have also added Levaquin but I do not anticipate the patient will be discharged on that unless his cultures come back positive. Continue with nebulizer treatments. Wean off oxygen as tolerated. (3) CAD (coronary artery disease) Current Visit: Yes Status: Acute Assessment and plan: Continue with aspirin and Plavix and a beta jamel. The patient is also on statin Qualifiers: Coronary Disease-Associated Artery/Lesion type: bypass graft [place] vs. transplanted heart: [place] heart Associated angina: without angina Qualified Code(s): I25.810 - Atherosclerosis of coronary artery bypass graft(s) without angina pectoris (4) GERD (gastroesophageal reflux disease) Current Visit: Yes Status: Acute Assessment and plan: Continue PPI. Qualifiers: Esophagitis presence: without esophagitis Qualified Code(s): K21.9 - Gastro -esophageal reflux disease without esophagitis (5) CKD (chronic kidney disease) stage 3, GFR 30-59 ml/min Current Visit: No Status: Chronic Assessment and plan: Around baseline. We will continue to monitor. Labs in the morning. (6) DVT prophylaxis Current Visit: No Status: Acute Assessment and plan: Lovenox. - Subjective Interval history: He was seen and examined by me. The patient shows no signs of confusion today. Yesterday he had an episode of vomiting while being evaluated by the neurologist. This has resolved with antiemetics and has had no recurrence. His MAXIMUM TEMPERATURE was 100.3. He tested positive for the influenza A. Chest x-ray showed infiltrates. - Constitutional Vitals: Temp Pulse Resp BP Pulse Ox 98.2 F 80 20 115/76 93 03/10/17 11:43 03/10/17 11:43 03/10/17 11:43 03/10/17 11:43 03/10/17 11:43 General appearance: Present: A&O X 3 Exam: GEN: NAD CVS: RRR. S1, S2, No m/r/g RESP: Diminished at the bases. Otherwise clear ABD: Soft, NT, ND, +BS EXT: No edema. 2+ DP. No rashes NEURO: Nonfocal Internal Medicine: Result - Labs CBC & Chem 7: 03/10/17 08:56 03/10/17 08:56 Labs: Short CBC 03/10/17 Range/Units 08:56 WBC 6.9 (4.3-11.1) K/mcL Hgb 14.3 (12.9-16.9) g/dL Hct 42.0 (37.5-50.1) % Plt Count 108 L (140-400) K/mcL Neutrophils # 5.0 (1.6-8.9) K/mcL BMP 03/10/17 08:56 Sodium 133 L Potassium 4.0 Chloride 102 Carbon Dioxide 25 BUN 19 Creatinine 1.79 H Glucose 128 H Calcium 9.1 - ABG Interpretation ABG results: PT/INR, D-dimer PT 12.1 Seconds (9.4-12.1) 03/08/17 15:32 - Impressions Impressions Brain MRI 03/09/17 10:29 IMPRESSION: No acute intracranial abnormality. Age-related involutional changes and moderate chronic microvascular ischemic disease. D/ / 03/09/2017 13:39:49 Chin Bocanegra MD / [facility] Interpreting Provider: Chin Bocanegra MD Echocardiogram 03/09/17 10:29 Impressions: LVEF 55%. Mild left ventricular diastolic dysfunction. Normal right ventricular structure and function. No significant valvular dysfunction. No pulmonary hypertension. PFO is present with saline contrast injection. Left Ventricular Wall Motion: Rest Echo Findings All wall segments showed normal motion. Findings: Study Quality * Technically adequate exam. ECG Findings * Normal sinus rhythm. Left Ventricle * LVEF 55%. * Mild left ventricular diastolic dysfunction. * Normal LV size and wall thickness. Right Ventricle * Normal right ventricular structure and function. Left Atrium * Normal left atrial size. Right Atrium * Normal right atrial size. Aortic Valve * No aortic regurgitation. * Aortic valve not well visualized. * No aortic stenosis. Mitral Valve * No mitral regurgitation. * Normal mitral valve structure. * No mitral stenosis. Tricuspid Valve * Tricuspid valve not well visualized. * No tricuspid regurgitation. * Estimated RA pressure is 3 mmHg. * Estimated RVSP is 14 mmHg. * No pulmonary hypertension. Pulmonic Valve * Pulmonic valve is not well visualized. * No pulmonic stenosis. * No pulmonic regurgitation. Pulmonary Artery * Pulmonary artery not well visualized. Aorta * Normally sized aortic root. Pericardium * There is no pericardial effusion present. Interatrial Septum * There is a PFO by agitated saline contrast, IVC * Normal IVC dimensions and inspiratory collapse. Chest X-Ray 03/10/17 06:03 IMPRESSION: Left basilar airspace disease could represent atelectasis, aspiration or pneumonia. D/ / Donavan Chakraborty MD / Donavan Chakraborty MD Interpreting Provider: Donavan Chakraborty MD Consult Discharge Plan - Plan Referrals: Rod Knapp MD [Primary Care Provider] -
[2017-03-10] MEDS: Ipratropium/Albuterol Neb 3 ML IH SCH ×2 (15:46→22:17)
--- NOTE | 2017-03-10 16:06 | EEG/EMG/Oth Biometrics Report ---
EEG Procedure Report Date of procedure: 03/10/17 EEG Procedure: Routine EEG Procedure Note: Report: This EEG was acquired with standard international 10-20 electrode placement system with EKG recording. The background activity during this EEG was replaced by a mixture of theta and alpha activity with best frequency up to 7-8 Hz. The background activity was reactive to eye openings. Sleep stages were characterized by the presence of K-complexes, Vertex wave and persistent delta slowing. There are no electrographic seizures identified during this tracing. There are no epileptiform discharges and focal slowing noted during this recording. Photic stimulation produced no abnormalities. HV not performed during this study. EKG tracing showed no significant cardiac dysarrhythmia. Impression: This is an abnormal EEG due to presence of mild diffuse background slowing. Clinical Correlation: This EEG is consistent with mild diffuse cerebral dysfunction that can be seen in patients with mild encephalopathy, metabolic/toxic, electrolyte derangement, or patients with history of cognitive impairment. Clinical correlation suggested.
--- NOTE | 2017-03-10 17:56 | Neurology Progress Note ---
Date of Encounter: 03/10/17 Time of Encounter: 17:52 Assessment and Plan (1) Altered mental status Current Visit: Yes Status: Acute It appears that the patient has improved but not sure why he is still feeling very lousy. I did not see any focal neurological deficits. He does have chronic postural tremors involving both arms and legs but i do not see other Parkinson' features, also due to significant postural rhythmic tremor they do cause cogwheeling like feeling but when he totally reflexed there is no muscle rigidity. But i would not be surprised if indeed he may have component of Parkinson disease which at times can be associated with cognitive impairment as well. But at this time i would not initiate dopa therapy and the patient may benefit form outpatient follow up with neurology after medical conditions stabilizes. he actually sees Dr. Abdul for tremors in the past. I see no evidence of SHIPPING PROCESSOR infection and negative MRI of brain ruled out stroke. Routine EEG with background slowing would be consistent with mild diffuse encephalopathy, which is medical related. Beside chronic renal insufficiency, he also has history of COPD and this can certainly aggravate encephalopathy. Defer to medical team for further evaluation and treatment. from neurology perspective, will recommend no further testing. Qualifiers: Altered mental status type: transient alteration of awareness Qualified Code(s): R40.4 - Transient alteration of awareness Subjective Principal diagnosis: weakness and confusion Interval history: Patient seen and examined. He is sitting in bed and says that he feels shaky. When asked what he exactly feels he could not elaborate. He ate half of dinner and reports no nausea. He has tremors all over, both hands and legs, mostly postural in occurring. Apparently this has been a chronic phenomenon. He has tremors in his legs and hands. Does not appear to have rest tremors or cogwheeling rigidity. EEG completed and showed mild diffuse slowing, no EDs, no seizures noted. Objective - Constitutional Vitals: Temp Pulse Resp BP Pulse Ox 100.8 F H 88 20 117/71 94 03/10/17 16:53 03/10/17 16:53 03/10/17 16:53 03/10/17 16:53 03/10/17 16:53 - Neurological Exam Motor Examination: Present: full strength in all major muscle groups (Patient has quite significant postural tremors both hands and legs, no rest tremors. no cogwheeling rigidity) Motor examination - right side: 5: deltoids, biceps, triceps, wrist flexion, wrist extension, child care director, hip flexors, tibialis Anterior, quadriceps, toe extension (EHL), plantarflexion Motor examination - left side: 5: deltoids, biceps, triceps, wrist flexion, wrist extension, hip flexors, child care director, quadriceps, tibialis Anterior, toe extension (EHL), plantarflexion Sensation intact: Present: intact (Grossly intact) Posture: Present: other (None) Reflex and gait examination: other (Not tested) Reflexes: Biceps: 2+, Triceps: 2+, Brachioradialis: 2+, Patella: 2+, Achilles: 2 + Mental Status Examination: Present: awake, alert, oriented to person, oriented to place, oriented to time, follows commands appropriately, answers questions appropriately, no agnosia, no aphasia, no aproxia Cranial nerve examination: Present: PERRL, EOMI, visual stewart intact, corneal reflexes brisk symmetrically, sensory to face intact, mastication intact, no facial asymmetry is present, no dysarthria, hearing is intact symmetrically, soft palate elevates bilaterally upon phonation, gag reflex intact, flexes SCM and trapezius muscles symmetrically with full power, tongue protrudes midline, no atrophy or facial fasiculations present Results - Laboratory Findings CBC and BMP: 03/10/17 08:56 03/10/17 08:56 Abnormal lab findings: Abnormal lab results MCH 33.6 pg (28.0-33.3) H 03/10/17 08:56 Plt Count 108 K/mcL (140-400) L 03/10/17 08:56 Sodium 133 mEq/L (136-145) L 03/10/17 08:56 Creatinine 1.79 mg/dL (0.70-1.30) H 03/10/17 08:56 Est GFR ( Amer) 46 (> 60) L 03/10/17 08:56 Est GFR (Non-Af Amer) 38 (> 60) L 03/10/17 08:56 Glucose 128 mg/dL (70-105) H 03/10/17 08:56 POC Glucose 107 (58-89) H 03/10/17 16:52 Hemoglobin A1c 5.7 % (-5.6) H 03/09/17 03:55 LDL Cholesterol, Calc 108 mg/dL (0-99) H 03/09/17 03:55 HDL Cholesterol 28 mg/dL (40-59) L 03/09/17 03:55 Cholesterol/HDL Ratio 5.9 (0-4.9) H 03/09/17 03:55 TSH 0.319 mcIU/mL (0.340-5.600) L 03/08/17 15:32 Total T3 0.68 ng/mL (0.87-1.78) L 03/09/17 03:55 Ur Specific [place] 1.026 (1.010-1.025) H 03/08/17 16:40 Urine Protein 30 mg/dL (Neg-Trace) H 03/08/17 16:40 Urine Glucose (UA) 100 mg/dL (Normal) H 03/08/17 16:40 Urine Blood Small (Negative) H 03/08/17 16:40 Urine Bilirubin Small (Negative) H 03/08/17 16:40 Urine Microscopic RBC 15-30 per hpf (0-3) H 03/08/17 16:40 Salicylates < 5.0 mg/dL (15.0-30.0) L 03/08/17 15:32 Acetaminophen < 1.0 mcg/mL (10-30) L 03/08/17 15:32 Consult Discharge Plan - Plan Referrals: Rod Knapp MD [Primary Care Provider] -
[2017-03-10] MEDS ORDERED: Acetaminophen 325 MG TABLET PO PRN (18:43)
[2017-03-10] MEDS: Nicotine 21 MG PATCH.TD24 TD SCH (20:25)
[2017-03-10] MEDS: Oseltamivir Phosphate 30 MG CAPSULE PO SCH (20:27)
[2017-03-10] MEDS ORDERED: Gabapentin 300 MG CAPSULE PO SCH (21:00)
[2017-03-11] MEDS: Ipratropium/Albuterol Neb 3 ML IH SCH ×2 (03:59→09:50)
[2017-03-11 04:40] LABS: Basophils % 0.1 %; Hematocrit 37.9 % (37.5-50.1); Hemoglobin 13.1 g/dL (12.9-16.9); Immature Granulocytes % 0.9 % (0-4); Lymphocytes # 1.2 K/mcL (0.6-4.6); Lymphocytes % 17.8 %; Mean Corpuscular HGB Conc 34.6 g/dL (31.6-35.5); Mean Corpuscular Hemoglobin 33.6 pg (28.0-33.3); Mean Corpuscular Volume 97.2 fL (83.0-100.0); Mean Platelet Volume 9.9 fL (9.4-12.4); Monocytes # 0.7 K/mcL (0.0-1.3); Monocytes % 10.1 %; Neutrophils # 4.9 K/mcL (1.6-8.9); Platelet Count 101 K/mcL (140-400); Red Cell Distribution Width 12.2 % (11.5-14.5); Segmented Neutrophils % 71.1 %
[2017-03-11 04:49] LABS: Potassium 3.7 mEq/L (3.5-5.1)
[2017-03-11] MEDS: *HR* Enoxaparin 40 MG/0.4 ML SYRINGE SQ SCH (05:18)
[2017-03-11] MEDS: Insulin LISPRO 300 UNITS/3 ML VIAL SQ SCH (06:44)
--- NOTE | 2017-03-11 09:19 | Discharge Summary ---
Date of Encounter: 03/11/17 Time of Encounter: 09:15 - Discharge Diagnosis (1) Altered mental status Priority: Primary Status: Acute Qualifiers: Altered mental status type: transient alteration of awareness Qualified Code(s): R40.4 - Transient alteration of awareness (2) Pneumonia and influenza Priority: Primary Status: Acute (3) CAD (coronary artery disease) Priority: Secondary Status: Acute Qualifiers: Coronary Disease-Associated Artery/Lesion type: bypass graft [place] vs. transplanted heart: [place] heart Associated angina: without angina Qualified Code(s): I25.810 - Atherosclerosis of coronary artery bypass graft(s) without angina pectoris (4) GERD (gastroesophageal reflux disease) Priority: Secondary Status: Acute Qualifiers: Esophagitis presence: without esophagitis Qualified Code(s): K21.9 - Gastro -esophageal reflux disease without esophagitis (5) CKD (chronic kidney disease) stage 3, GFR 30-59 ml/min Priority: Secondary Status: Chronic - Discharge Medications Prescriptions: levoFLOXacin [Levaquin] 500 mg PO AD #5 tablet Oseltamivir Phosphate [Tamiflu] 30 mg PO BID #6 capsule Home Medications: Ascorbate Calcium [Vitamin C] 500 mg PO DAILY 11/19/15 [History] Aspirin 81 mg PO DAILY 11/19/15 [History] Azelastine HCl 1 drop OP BID 11/19/15 [History] Clopidogrel [Plavix] 75 mg PO DAILY 11/19/15 [History] Linagliptin [Tradjenta] 5 mg PO DAILY 11/19/15 [History] Metoprolol [Lopressor] 50 mg PO BID 11/19/15 [History] Omeprazole [PriLOSEC] 20 mg PO DAILY 11/19/15 [History] Rosuvastatin [Crestor] 40 mg PO DAILY 11/19/15 [History] Tamsulosin [Flomax] 0.4 mg PO DAILY 11/19/15 [History] Albuterol Sulfate [Proair Hfa] 2 puff IH Q6H PRN 03/09/17 [History] Fluticasone Propionate [Flovent Hfa] 220 mcg IH BID 03/09/17 [History] Gabapentin [Neurontin] 300 mg PO HS 03/09/17 [History] Oseltamivir Phosphate [Tamiflu] 30 mg PO BID #6 capsule 03/11/17 [Rx] levoFLOXacin [Levaquin] 500 mg PO AD #5 tablet 03/11/17 [Rx] Allergies/Adverse Reactions: 3 Allergy/AdvReac Type Severity Reaction Status Date / Time No Known Allergies Allergy Verified 11/17/15 19:23 Date of admission: 03/10/17 17:03 Primary care physician: Rod Knapp MD - Patient Status Disposition: Home Health Service Overall status at discharge: patient is progressing back to baseline - Discharge Instructions Follow Up With: Rod Knapp MD [Primary Care Provider] - 03/17/17 8:45 am Lanny Hernandez MD [Partnered Physician] - (2 weeks) - Diet and Activity Activity: resume usual activities as tolerated Diet: regular diet Hospital course: Mr. Gee is a 67 year old male ith a history of aortic vascular disease status post bypass, CAD, diabetes, hypertension presented for evaluation of altered mental status noted by his family. He lives alone. He was initially admitted for possible CVA. His workup for stroke was negative. CT head MRI brain echocardiogram and carotid duplex. His echocardiogram did show an incidental PFO. We ended up having neurology see him and they thought it was nothing neurological accounting for his encephalopathy. They did order EEG which was read as mild diffuse cerebral dysfunction that can be seen in patients with mild encephalopathy/metabolic toxic/electrolytes derangement/or patients with history of cognitive impairment. He tested positive for influenza A and was put on Tamiflu. He also had positive urine strep and was started on Levaquin. He was discharged Tamiflu as well as Levaquin. The patient was showing signs of significant tremors and unsteadiness on his feet. He possibly could have a diagnosis of Parkinson's. Neurology recommended that he follows up with a neurologist. The patient was referred. He was recommended a long term facility, however, refused and the family wanted him back home as he has a dog and would not be able to live away from his dog. We did set up the patient with a hospital bed and home health - Time Spent with Patient Total time spent providing and/or coordinating discharge services: Greater than 30 minutes - Constitutional Vitals: Temp Pulse Resp BP Pulse Ox 99.3 F 93 16 116/71 96 03/11/17 06:30 03/11/17 06:30 03/11/17 06:30 03/11/17 06:30 12/28/17 06:30 General appearance: Present: A&O X 3 Exam: GEN: NAD CVS: RRR. S1, S2, No m/r/g RESP: Diminished at the bases. Otherwise clear ABD: Soft, NT, ND, +BS EXT: No edema. 2+ DP. No rashes NEURO: Nonfocal - VTE Documentation of Mechanical Device: Intermittent pneumatic compression device
--- NOTE | 2017-03-11 09:20 | Physician Discharge Referral ---
Home Health/Hosp Referral Info Transfer to: Home Health - Diagnosis (1) Altered mental status Priority: Primary Status: Acute (2) Pneumonia and influenza Priority: Primary Status: Acute (3) CAD (coronary artery disease) Priority: Secondary Status: Acute (4) GERD (gastroesophageal reflux disease) Priority: Secondary Status: Acute (5) CKD (chronic kidney disease) stage 3, GFR 30-59 ml/min Priority: Secondary Status: Chronic - Respiratory Orders Smoking Cessation: Smoking cessation has been advised. For more information, call the [place] Tobacco Quit Line at 8-654-QYPQ-NOW. - Diet/Nutrition Diet/Nutrition Orders: Regular - Activity Activity: List: Wheelchair needs: Patient is welling/able to use WC. He is physically and mentally able a wheelchair. He is able to complete ADLs with use of wheelchair. His issues are not resolvable by can and walker Hospital bed needs: Patient will need frequent change of position to avoid ulcerations. - Services Needed Following services are medically necessary services: Home Health Aide - Transfer Medications Prescriptions: levoFLOXacin [Levaquin] 500 mg PO AD #5 tablet Oseltamivir Phosphate [Tamiflu] 30 mg PO BID #6 capsule Home Medications: Ascorbate Calcium [Vitamin C] 500 mg PO DAILY 11/19/15 [History] Aspirin 81 mg PO DAILY 11/19/15 [History] Azelastine HCl 1 drop OP BID 11/19/15 [History] Clopidogrel [Plavix] 75 mg PO DAILY 11/19/15 [History] Linagliptin [Tradjenta] 5 mg PO DAILY 11/19/15 [History] Metoprolol [Lopressor] 50 mg PO BID 11/19/15 [History] Omeprazole [PriLOSEC] 20 mg PO DAILY 11/19/15 [History] Rosuvastatin [Crestor] 40 mg PO DAILY 11/19/15 [History] Tamsulosin [Flomax] 0.4 mg PO DAILY 11/19/15 [History] Albuterol Sulfate [Proair Hfa] 2 puff IH Q6H PRN 03/09/17 [History] Fluticasone Propionate [Flovent Hfa] 220 mcg IH BID 03/09/17 [History] Gabapentin [Neurontin] 300 mg PO HS 03/09/17 [History] Oseltamivir Phosphate [Tamiflu] 30 mg PO BID #6 capsule 03/11/17 [Rx] levoFLOXacin [Levaquin] 500 mg PO AD #5 tablet 03/11/17 [Rx] Allergies/Adverse Reactions: 3 Allergy/AdvReac Type Severity Reaction Status Date / Time No Known Allergies Allergy Verified 11/17/15 19:23 Certification: Further, I certify that my clinical findings support that this patient is homebound (i.e. absences from home require considerable and taxing effort and are for medical reasons or [facility] or infrequently or short duration when for other reasons) because: Homebound Reason: Patient requires assistance of a person or device to safely leave home Attestation: My signature below is to certify that this patient is under my care and that I, or nurse practitioner, or a physician's assistant food service director working with me, has a face-to -face encounter with this patient.
[2017-03-11] MEDS: Beclomethasone 80mcg MDI IH SCH (09:50)
[2017-03-11] MEDS: Aspirin 81 MG TAB.CHEW PO SCH (10:11)
[2017-03-11] MEDS: Oseltamivir Phosphate 30 MG CAPSULE PO SCH (10:12)
[2017-03-11] MEDS: Levofloxacin 500 MG/100 ML 500 MG/100 ML BAG IVPB SCH (10:12)
[2017-03-11 10:46] VITALS: BP 112/72
== END 2017-03-11 14:45 | disposition home health service (06) | DRG 193 ==
LOC: 3ANU 15:06 → EMEROO 15:06 → 3ANU 18:06
PROVIDERS: ADMIT Internal Medicine Nephrology; ATTEND Internal Medicine

== ENCOUNTER 2019-10-08 22:16 | Inpatient (IN) ==
[2019-10-08] MEDS ORDERED: Isovue-370 500 ML BOTTLE IVP ONE (22:26)
[2019-10-08 22:55] LABS: Basophils # 0.1 K/mcL (0.0-0.2); Basophils % 0.9 %; Eosinophils % 0.1 %; Hematocrit 38.4 % (37.5-50.1); Hemoglobin 13.5 g/dL (12.9-16.9); Immature Granulocytes % 0.4 % (0-4); Lymphocytes # 3.6 K/mcL (0.6-4.6); Lymphocytes % 38.7 %; Mean Corpuscular HGB Conc 35.2 g/dL (31.6-35.5); Mean Corpuscular Hemoglobin 35.1 pg (28.0-33.3); Mean Corpuscular Volume 99.7 fL (83.0-100.0); Mean Platelet Volume 9.8 fL (9.4-12.4); Monocytes # 0.5 K/mcL (0.0-1.3); Monocytes % 5.5 %; Platelet Count 151 K/mcL (140-400); Red Blood Count 3.85 M/mcL (4.19-5.50); Red Cell Distribution Width 12.1 % (11.5-14.5); Segmented Neutrophils % 54.4 %; White Blood Count 9.2 K/mcL (4.3-11.1)
[2019-10-08 23:01] LABS: VBG HCO3 24 mEq/L (21-27); VBG PCO2 42 mmHg (41-51); VBG PH 7.37 pH Units (7.32-7.42); VBG PO2 95 mmHg (25-50)
[2019-10-08 23:19] LABS: Alanine Aminotransferase 6 Units/L (7-52); Albumin 3.8 g/dL (3.5-5.7); Albumin/Globulin Ratio 1.4 (1.1-2.2); Alkaline Phosphatase 74 Units/L (34-104); Aspartate Amino Transferase 10 Units/L (13-39); BUN/Creatinine Ratio 14 (6-26); Bilirubin,Direct 0.1 mg/dL (0.0-0.2); Bilirubin,Indirect 0.6 mg/dL (0.0-1.0); Bilirubin,Total 0.7 mg/dL (0.3-1.0); Blood Urea Nitrogen 26 mg/dL (8-23); Calcium 10.1 mg/dL (8.6-10.3); Carbon Dioxide 23 mEq/L (23-29); Chloride 107 mEq/L (98-107); Ethanol < 10 mg/dL (Less than 10); Globulin 2.8 g/dL (2.4-3.5); Glucose 183 mg/dL (70-105); Magnesium 1.7 mg/dL (1.6-2.6); Osmolality,Calculated 299 (280-300); Potassium 3.5 mEq/L (3.5-5.1); Sodium 140 mEq/L (136-145); Total Protein 6.6 g/dL (6.4-8.9); Troponin I < 0.03 ng/mL (< 0.04); eGFR For African Americans 45 (> 60); eGFR For Non-African Americans 37 (> 60)
[2019-10-08] MEDS ORDERED: 0.9 % Sodium Chloride 1,000 ML IVC ONE (23:29)
[2019-10-08] MEDS ORDERED: Morphine Sulfate 2 MG/ML SYRINGE IVP ONE (23:42)
[2019-10-09 00:53] LABS: Bilirubin,Urine Negative (Negative); Blood,Urine Large (Negative); Clarity,Urine Turbid (Clear); Color,Urine Colorless (Yellow); Glucose,Urine (UA) Normal (Normal); Ketones,Urine Negative (Negative); Leukocyte Esterase,Urine Large (Negative); Mucus,Urine Few per lpf (None-Few); Nitrite,Urine Negative (Negative); PH,Urine 6.5 pH Units (5.0-8.0); Protein,Urine 70 mg/dL (Neg-Trace); RBC,Urine TNTC per hpf (0-3); Specific Gravity,Urine > 1.030 (1.010-1.025); Urobilinogen,Urine Normal (Normal); WBC,Urine TNTC per hpf (0-3)
[2019-10-09 00:56] LABS: Amphetamine Screen,Urine Negative ng/mL (Cutoff=1000); Barbiturate Screen,Urine Negative ng/mL (Cutoff=200); Benzodiazepines Screen,Urine Negative ng/mL (Cutoff=200); Cannabinoid Screen,Urine Negative ng/mL (Cutoff = 50); Cocaine Screen,Urine Negative ng/mL (Cutoff= 300); Opiate Screen,Urine Positive ng/mL (Cutoff=300); Phencyclidine Screen,Urine Negative ng/mL (Cutoff=25)
[2019-10-09] MEDS ORDERED: *HR* Heparin 5,000 UNIT/ML VIAL IVP ONE (01:06)
[2019-10-09] MEDS ORDERED: *HR* Heparin 5,000 UNIT/ML VIAL IVP PRN ×2 (01:06)
[2019-10-09] MEDS ORDERED: cefTRIAXone 1,000 MG in Water for inj. (sterile) 10 ML IVP ONE (01:11)
[2019-10-09] MEDS ORDERED: Heparin 25,000 UNIT/250 ML D5W 25,000 UNIT/250 ML IV.SOLN IVC SCH (01:15)
[2019-10-09 01:20] LABS: Hematocrit 35.7 % (37.5-50.1); Hemoglobin 12.2 g/dL (12.9-16.9); Mean Corpuscular HGB Conc 34.2 g/dL (31.6-35.5); Mean Corpuscular Hemoglobin 34.5 pg (28.0-33.3); Mean Corpuscular Volume 100.8 fL (83.0-100.0); Mean Platelet Volume 9.2 fL (9.4-12.4); Platelet Count 123 K/mcL (140-400); Red Blood Count 3.54 M/mcL (4.19-5.50); White Blood Count 8.3 K/mcL (4.3-11.1)
[2019-10-09 01:28] LABS: Heparin anti-factor XA UFH < 0.04 IU/mL (0.30-0.70); Prothrombin Time 11.7 Seconds (9.4-12.1)
[2019-10-09 02:15] LABS: Adenovirus Not Detected (Not Detect); Bordetella Pertussis Not Detected (Not Detect); Chlamydophila pneumoniae Not Detected (Not Detect); Coronavirus 229E Not Detected (Not Detect); Coronavirus HKU1 Not Detected (Not Detect); Coronavirus NL63 Not Detected (Not Detect); Coronavirus OC43 Not Detected (Not Detect); Human Metapneumovirus Not Detected (Not Detect); Human Rhinovirus/Enterovirus DETECTED (Not Detect); Influenza A Subtype 2009 H1 Not Detected (Not Detect); Influenza B Not Detected (Not Detect); Mycoplasma pneumoniae Not Detected (Not Detect); Parainfluenza Virus 1 Not Detected (Not Detect); Parainfluenza Virus 2 Not Detected (Not Detect); Parainfluenza Virus 3 Not Detected (Not Detect); Parainfluenza Virus 4 Not Detected (Not Detect); Respiratory Syncytial Virus Not Detected (Not Detect); SARS-CoV-2 Not Detected (Not Detect)
[2019-10-09] MEDS ORDERED: Naloxone 0.4 MG/ML INJ IVP PRN (03:08)
[2019-10-09] MEDS ORDERED: Ondansetron 4 MG/2 ML VIAL IVP PRN (03:08)
[2019-10-09] MEDS: Ringers Solution, Lactated 1,000 ML IVC SCH ×2 (04:46→18:20)
[2019-10-09 05:00] LABS: Prothrombin Time 11.3 Seconds (9.4-12.1)
[2019-10-09 05:07] LABS: Calcium 9.5 mg/dL (8.6-10.3); Potassium 3.6 mEq/L (3.5-5.1)
[2019-10-09] MEDS ORDERED: D5% in Water 1,000 ML IVC PRN (06:08)
[2019-10-09] MEDS ORDERED: *HR* Dextrose 50 % in Water (Vial) 50 ML VIAL IVP PRN (06:08)
[2019-10-09] MEDS ORDERED: Dextrose Gel 15 GM/37.5 ML TUBE PO PRN ×2 (06:08)
[2019-10-09] MEDS: Insulin LISPRO 300 UNITS/3 ML VIAL SQ SCH ×3 (08:04→17:07)
[2019-10-09] MEDS: cefTRIAXone 1,000 MG in Water for inj. (sterile) 10 ML IVP SCH (09:26)
[2019-10-09] MEDS ORDERED: Insulin LISPRO 300 UNITS/3 ML VIAL SQ SCH (21:00)
[2019-10-09] MEDS ORDERED: Insulin DETEMIR 100 UNIT/ML X5UNITS SQ SCH (21:00)
[2019-10-09] MEDS: Nicotine 21 MG PATCH.TD24 TD SCH (22:54)
[2019-10-10 00:36] LABS: Basophils % 0.5 %; Hemoglobin 12.2 g/dL (12.9-16.9); Immature Granulocytes % 0.4 % (0-4); Lymphocytes # 2.5 K/mcL (0.6-4.6); Lymphocytes % 31.9 %; Mean Corpuscular HGB Conc 33.9 g/dL (31.6-35.5); Mean Corpuscular Hemoglobin 34.5 pg (28.0-33.3); Mean Corpuscular Volume 101.7 fL (83.0-100.0); Mean Platelet Volume 9.6 fL (9.4-12.4); Monocytes # 0.6 K/mcL (0.0-1.3); Neutrophils # 4.7 K/mcL (1.6-8.9); Platelet Count 139 K/mcL (140-400); Red Blood Count 3.54 M/mcL (4.19-5.50); Red Cell Distribution Width 11.9 % (11.5-14.5); Segmented Neutrophils % 60.2 %; White Blood Count 7.9 K/mcL (4.3-11.1)
[2019-10-10 00:54] LABS: BUN/Creatinine Ratio 16 (6-26); Blood Urea Nitrogen 21 mg/dL (8-23); Calcium 9.4 mg/dL (8.6-10.3); Carbon Dioxide 26 mEq/L (23-29); Chloride 108 mEq/L (98-107); Glucose 137 mg/dL (70-105); Osmolality,Calculated 293 (280-300); Potassium 3.7 mEq/L (3.5-5.1); Sodium 139 mEq/L (136-145); eGFR For African Americans > 60 (> 60); eGFR For Non-African Americans 53 (> 60)
[2019-10-10] MEDS: Nicotine 21 MG PATCH.TD24 TD SCH (07:54)
[2019-10-10] MEDS: cefTRIAXone 1,000 MG in Water for inj. (sterile) 10 ML IVP SCH (07:54)
[2019-10-10] MEDS: Insulin LISPRO 300 UNITS/3 ML VIAL SQ SCH (07:55)
[2019-10-10] MEDS ORDERED: Ascorbic Acid 500 MG TABLET PO SCH (09:00)
[2019-10-10] MEDS ORDERED: Cyanocobalamin (B-12) 1,000 MCG TABLET PO SCH (09:00)
[2019-10-10] MEDS ORDERED: Cholecalciferol (D-3) 1,000 UNIT (25MCG) TABLET PO SCH (09:00)
[2019-10-10 11:07] VITALS: BP 137/88
== END 2019-10-10 15:16 | disposition home health service (06) | DRG 315 ==
LOC: EMEROOARM 22:16 → 2NNU 22:16 → SUATTDRO 10-09 02:31 → 2NNU 10-09 04:02
PROVIDERS: ADMIT Internal Medicine; ATTEND Internal Medicine

== ENCOUNTER 2019-10-29 17:01 | Inpatient (IN) ==
[2019-10-29 17:54] LABS: Basophils # 0.1 K/mcL (0.0-0.2); Basophils % 0.6 %; Hematocrit 43.5 % (37.5-50.1); Hemoglobin 14.8 g/dL (12.9-16.9); Immature Granulocytes % 0.2 % (0-4); Lymphocytes # 2.6 K/mcL (0.6-4.6); Lymphocytes % 30.3 %; Mean Corpuscular Hemoglobin 33.9 pg (28.0-33.3); Mean Corpuscular Volume 99.8 fL (83.0-100.0); Mean Platelet Volume 9.3 fL (9.4-12.4); Monocytes # 0.5 K/mcL (0.0-1.3); Monocytes % 6.4 %; Neutrophils # 5.3 K/mcL (1.6-8.9); Platelet Count 171 K/mcL (140-400); Red Blood Count 4.36 M/mcL (4.19-5.50); Red Cell Distribution Width 12.2 % (11.5-14.5); Segmented Neutrophils % 62.5 %; White Blood Count 8.5 K/mcL (4.3-11.1)
[2019-10-29 17:56] LABS: INR 1.1
[2019-10-29 18:09] LABS: Albumin 4.2 g/dL (3.5-5.7); Albumin/Globulin Ratio 1.6 (1.1-2.2); Bilirubin,Total 0.8 mg/dL (0.3-1.0); Calcium 10.3 mg/dL (8.6-10.3); Globulin 2.6 g/dL (2.4-3.5); Potassium 4.1 mEq/L (3.5-5.1); Total Protein 6.8 g/dL (6.4-8.9)
[2019-10-29] MEDS ORDERED: Acetaminophen 325 MG TABLET PO PRN (19:18)
[2019-10-29] MEDS ORDERED: Ondansetron 4 MG/2 ML VIAL IVP PRN (19:18)
[2019-10-29] MEDS ORDERED: Naloxone 0.4 MG/ML INJ IVP PRN (19:18)
[2019-10-29] MEDS ORDERED: *HR* Heparin 5,000 UNIT/ML VIAL IVP ONE (19:21)
[2019-10-29] MEDS ORDERED: *HR* Heparin 5,000 UNIT/ML VIAL IVP PRN ×2 (19:21)
[2019-10-29] MEDS ORDERED: Heparin 25,000UNIT/250ML 1/2NS 25,000 UNIT/250 ML IV.SOLN IVC SCH (19:30)
[2019-10-29] MEDS ORDERED: Dextrose Gel 15 GM/37.5 ML TUBE PO PRN ×2 (20:35)
[2019-10-29] MEDS ORDERED: *HR* Dextrose 50 % in Water (Vial) 50 ML VIAL IVP PRN (20:35)
[2019-10-29] MEDS ORDERED: D5% in Water 1,000 ML IVC PRN (20:35)
[2019-10-29] MEDS: 0.9 % Sodium Chloride 1,000 ML IVC SCH (20:48)
[2019-10-29 20:54] LABS: Hematocrit 41.3 % (37.5-50.1); Hemoglobin 14.1 g/dL (12.9-16.9); Mean Corpuscular HGB Conc 34.1 g/dL (31.6-35.5); Mean Corpuscular Hemoglobin 34.1 pg (28.0-33.3); Mean Corpuscular Volume 99.8 fL (83.0-100.0); Mean Platelet Volume 9.5 fL (9.4-12.4); Platelet Count 165 K/mcL (140-400); Red Blood Count 4.14 M/mcL (4.19-5.50); Red Cell Distribution Width 12.2 % (11.5-14.5); White Blood Count 8.6 K/mcL (4.3-11.1)
[2019-10-29 21:03] LABS: Estimated Average Glucose 123 mg/dl
[2019-10-29 21:11] LABS: Prothrombin Time 11.8 Seconds (9.4-12.1)
[2019-10-29 21:15] LABS: Heparin anti-factor XA UFH < 0.04 IU/mL (0.30-0.70)
[2019-10-29] MEDS: Insulin LISPRO 300 UNITS/3 ML VIAL SQ SCH (21:44)
[2019-10-30] MEDS ORDERED: Haloperidol Lactate 5 MG/ML VIAL IVP ONE (00:23)
[2019-10-30 03:54] LABS: Basophils # 0.1 K/mcL (0.0-0.2); Basophils % 0.7 %; Hematocrit 36.6 % (37.5-50.1); Hemoglobin 12.8 g/dL (12.9-16.9); Immature Granulocytes % 0.2 % (0-4); Lymphocytes # 2.8 K/mcL (0.6-4.6); Lymphocytes % 33.4 %; Mean Platelet Volume 9.5 fL (9.4-12.4); Monocytes # 0.6 K/mcL (0.0-1.3); Monocytes % 7.5 %; Neutrophils # 4.9 K/mcL (1.6-8.9); Platelet Count 146 K/mcL (140-400); Red Blood Count 3.66 M/mcL (4.19-5.50); Segmented Neutrophils % 58.2 %; White Blood Count 8.4 K/mcL (4.3-11.1)
[2019-10-30 03:55] LABS: Prothrombin Time 11.7 Seconds (9.4-12.1)
[2019-10-30 04:10] LABS: Calcium 9.6 mg/dL (8.6-10.3); Magnesium 1.6 mg/dL (1.6-2.6); Phosphorous 2.9 mg/dL (2.7-4.5); Potassium 3.6 mEq/L (3.5-5.1)
[2019-10-30] MEDS ORDERED: Ipratropium/Albuterol Neb 3 ML IH PRN (07:23)
[2019-10-30] MEDS: 0.9 % Sodium Chloride 1,000 ML IVC SCH (07:45)
[2019-10-30] MEDS: Insulin LISPRO 300 UNITS/3 ML VIAL SQ SCH ×3 (07:45→16:47)
[2019-10-30] MEDS: Aspirin 81 MG TAB.CHEW PO SCH (07:50)
[2019-10-30] MEDS ORDERED: *HR* HYDROcodone/Acet 7.5/325 mg TABLET PO PRN (09:07)
[2019-10-31 03:16] LABS: Basophils # 0.1 K/mcL (0.0-0.2); Basophils % 0.8 %; Eosinophils % 0.1 %; Hematocrit 35.3 % (37.5-50.1); Hemoglobin 12.6 g/dL (12.9-16.9); Immature Granulocytes % 0.4 % (0-4); Lymphocytes # 3.1 K/mcL (0.6-4.6); Lymphocytes % 33.4 %; Mean Corpuscular HGB Conc 35.7 g/dL (31.6-35.5); Mean Corpuscular Hemoglobin 34.4 pg (28.0-33.3); Mean Corpuscular Volume 96.4 fL (83.0-100.0); Mean Platelet Volume 10.4 fL (9.4-12.4); Monocytes # 0.6 K/mcL (0.0-1.3); Monocytes % 6.7 %; Platelet Count 141 K/mcL (140-400); Red Blood Count 3.66 M/mcL (4.19-5.50); Red Cell Distribution Width 11.9 % (11.5-14.5); Segmented Neutrophils % 58.6 %; White Blood Count 9.3 K/mcL (4.3-11.1)
[2019-10-31 03:17] LABS: Neutrophils # 5.5 K/mcL (1.6-8.9)
[2019-10-31 03:35] LABS: BUN/Creatinine Ratio 19 (6-26); Blood Urea Nitrogen 25 mg/dL (8-23); Calcium 9.2 mg/dL (8.6-10.3); Carbon Dioxide 19 mEq/L (23-29); Chloride 111 mEq/L (98-107); Glucose 124 mg/dL (70-105); Osmolality,Calculated 294 (280-300); Potassium 4.2 mEq/L (3.5-5.1); Sodium 139 mEq/L (136-145); eGFR For African Americans > 60 (> 60); eGFR For Non-African Americans 53 (> 60)
[2019-10-31] MEDS ORDERED: 0.9 % Sodium Chloride 1,000 ML IVC SCH ×3 (08:00→19:54)
[2019-10-31] MEDS: Insulin LISPRO 300 UNITS/3 ML VIAL SQ SCH ×3 (08:10→18:42)
[2019-10-31] MEDS: Aspirin 81 MG TAB.CHEW PO SCH (08:17)
[2019-10-31] MEDS ORDERED: Heparin 1,000 UNITS/500 mL 1,000 ML ONE (10:52)
[2019-10-31] MEDS ORDERED: Heparin 1,000 UNITS/500 mL 0 ML ONE (12:04)
[2019-10-31 13:15] LABS: ABG Base Excess -3 mEq/L (-2 to 3); ABG Chloride 107 mEq/L (98-107); ABG Glucose 130 mg/dL (60-95); ABG HCO3 22 mEq/L (21-27); ABG Ionized Calcium 1.33 mmol/L (1.15-1.35); ABG Oxygen Saturation 100 % (95-98); ABG PCO2 38 mmHg (35-45); ABG PH 7.38 pH Units (7.32-7.45); ABG PO2 581 mmHg (85-104); ABG TCO2 23 mEq/L (20-26)
[2019-10-31] MEDS ORDERED: CeFAZolin 2 GM/120 ML BAG IVPB ONE (14:33)
[2019-10-31 18:38] LABS: ABG Base Excess -3 mEq/L (-2 to 3); ABG HCO3 22 mEq/L (21-27); ABG Oxygen Saturation 100 % (95-98); ABG PCO2 40 mmHg (35-45); ABG PH 7.35 pH Units (7.32-7.45); ABG PO2 345 mmHg (85-104); ABG TCO2 23 mEq/L (20-26)
[2019-10-31] MEDS ORDERED: *HR* Metoprolol 5 MG/5 ML VIAL IVP PRN ×2 (18:54→19:54)
[2019-10-31] MEDS ORDERED: Perflutren Lipid Microsphere 1.3 ML in 0.9 % Sodium Chloride 8.7 ML IVP PRN ×2 (19:15→22:22)
[2019-10-31] MEDS ORDERED: *HR* Labetalol 20 MG/4 ML SYRINGE IVP PRN (19:54)
[2019-10-31] MEDS ORDERED: Ondansetron 4 MG/2 ML VIAL IVP PRN (19:54)
[2019-10-31] MEDS ORDERED: Dextrose Gel 15 GM/37.5 ML TUBE PO PRN ×2 (19:54)
[2019-10-31] MEDS ORDERED: Acetaminophen 325 MG TABLET PO PRN (19:54)
[2019-10-31] MEDS ORDERED: *HR* HYDROcodone/Acet 5/325 mg TABLET PO PRN (19:54)
[2019-10-31] MEDS ORDERED: Ipratropium/Albuterol Neb 3 ML IH PRN (19:54)
[2019-10-31] MEDS ORDERED: D5% in Water 1,000 ML IVC PRN (19:54)
[2019-10-31] MEDS ORDERED: Naloxone 0.4 MG/ML INJ IVP PRN ×2 (19:54)
[2019-10-31] MEDS ORDERED: *HR* HYDROcodone/Acet 7.5/325 mg TABLET PO PRN (19:54)
[2019-10-31] MEDS ORDERED: *HR* Dextrose 50 % in Water (Vial) 50 ML VIAL IVP PRN (19:54)
[2019-10-31] MEDS ORDERED: 0.9 % Sodium Chloride 1,000 ML ONE (19:56)
[2019-10-31] MEDS ORDERED: Ringers Solution, Lactated 1,000 ML IVC SCH (21:15)
[2019-10-31] MEDS: CeFAZolin 2 GM/120 ML BAG IVPB SCH (21:32)
[2019-11-01 05:03] LABS: Basophils % 0.2 %; Hematocrit 30.8 % (37.5-50.1); Immature Granulocytes % 0.4 % (0-4); Lymphocytes # 1.1 K/mcL (0.6-4.6); Mean Corpuscular HGB Conc 35.4 g/dL (31.6-35.5); Mean Corpuscular Hemoglobin 34.5 pg (28.0-33.3); Mean Corpuscular Volume 97.5 fL (83.0-100.0); Mean Platelet Volume 9.1 fL (9.4-12.4); Monocytes # 0.7 K/mcL (0.0-1.3); Monocytes % 5.9 %; Neutrophils # 9.8 K/mcL (1.6-8.9); Platelet Count 133 K/mcL (140-400); Red Blood Count 3.16 M/mcL (4.19-5.50); Red Cell Distribution Width 12.2 % (11.5-14.5); Segmented Neutrophils % 84.5 %; White Blood Count 11.6 K/mcL (4.3-11.1)
[2019-11-01 05:04] LABS: Hemoglobin 10.9 g/dL (12.9-16.9)
[2019-11-01 05:31] LABS: BUN/Creatinine Ratio 14 (6-26); Blood Urea Nitrogen 17 mg/dL (8-23); Calcium 9.2 mg/dL (8.6-10.3); Carbon Dioxide 23 mEq/L (23-29); Chloride 110 mEq/L (98-107); Glucose 180 mg/dL (70-105); Osmolality,Calculated 290 (280-300); Potassium 4.1 mEq/L (3.5-5.1); Sodium 137 mEq/L (136-145); eGFR For African Americans > 60 (> 60); eGFR For Non-African Americans 58 (> 60)
[2019-11-01] MEDS: CeFAZolin 2 GM/120 ML BAG IVPB SCH (06:35)
[2019-11-01] MEDS: Insulin LISPRO 300 UNITS/3 ML VIAL SQ SCH ×3 (08:45→17:17)
[2019-11-01] MEDS ORDERED: Aspirin 81 MG TAB.CHEW PO SCH (09:00)
[2019-11-01] MEDS ORDERED: Naloxone 0.4 MG/ML INJ IVP PRN (12:32)
[2019-11-01] MEDS ORDERED: Ipratropium/Albuterol Neb 3 ML IH PRN (12:32)
[2019-11-01] MEDS ORDERED: Ondansetron 4 MG/2 ML VIAL IVP PRN (12:32)
[2019-11-01] MEDS ORDERED: *HR* HYDROcodone/Acet 5/325 mg TABLET PO PRN (12:32)
[2019-11-01] MEDS ORDERED: Dextrose Gel 15 GM/37.5 ML TUBE PO PRN ×2 (12:32)
[2019-11-01] MEDS ORDERED: D5% in Water 1,000 ML IVC PRN (12:32)
[2019-11-01] MEDS ORDERED: *HR* Dextrose 50 % in Water (Vial) 50 ML VIAL IVP PRN (12:32)
[2019-11-01] MEDS ORDERED: CeFAZolin 2 GM/120 ML BAG IVPB SCH (14:00)
[2019-11-01] MEDS: *HR* Heparin 5,000 UNIT/ML VIAL SQ SCH (17:28)
[2019-11-01] MEDS ORDERED: *HR* Heparin 5,000 UNIT/ML VIAL SQ SCH (18:00)
[2019-11-02 05:26] LABS: Basophils # 0.1 K/mcL (0.0-0.2); Basophils % 0.4 %; Hematocrit 34.1 % (37.5-50.1); Hemoglobin 11.8 g/dL (12.9-16.9); Immature Granulocytes % 0.5 % (0-4); Lymphocytes # 1.5 K/mcL (0.6-4.6); Lymphocytes % 11.5 %; Mean Corpuscular HGB Conc 34.6 g/dL (31.6-35.5); Mean Corpuscular Hemoglobin 34.9 pg (28.0-33.3); Mean Corpuscular Volume 100.9 fL (83.0-100.0); Mean Platelet Volume 10.2 fL (9.4-12.4); Monocytes # 0.9 K/mcL (0.0-1.3); Monocytes % 6.8 %; Neutrophils # 10.2 K/mcL (1.6-8.9); Platelet Count 153 K/mcL (140-400); Red Blood Count 3.38 M/mcL (4.19-5.50); Red Cell Distribution Width 12.5 % (11.5-14.5); Segmented Neutrophils % 80.8 %; White Blood Count 12.6 K/mcL (4.3-11.1)
[2019-11-02] MEDS: *HR* Heparin 5,000 UNIT/ML VIAL SQ SCH ×2 (06:24→17:50)
[2019-11-02 07:09] LABS: Albumin 3.4 g/dL (3.5-5.7); Albumin/Globulin Ratio 1.5 (1.1-2.2); Bilirubin,Total 0.5 mg/dL (0.3-1.0); Calcium 9.8 mg/dL (8.6-10.3); Globulin 2.3 g/dL (2.4-3.5); Magnesium 1.3 mg/dL (1.6-2.6); Phosphorous 1.7 mg/dL (2.7-4.5); Potassium 4.1 mEq/L (3.5-5.1); Total Protein 5.7 g/dL (6.4-8.9)
[2019-11-02] MEDS: Aspirin 81 MG TAB.CHEW PO SCH (09:21)
[2019-11-02] MEDS: Insulin LISPRO 300 UNITS/3 ML VIAL SQ SCH ×3 (09:21→15:50)
[2019-11-02] MEDS: *HR* Metoprolol 5 MG/5 ML VIAL IVP PRN ×2 (09:25→19:53)
[2019-11-02] MEDS ORDERED: 0.9 % Sodium Chloride 500 ML IVC ONE (09:38)
[2019-11-02] MEDS ORDERED: 0.9 % Sodium Chloride 500 ML ONE (09:43)
[2019-11-02 10:13] LABS: ABG Base Excess 3 mEq/L (-2 to 3); ABG HCO3 25 mEq/L (21-27); ABG Oxygen Saturation 96 % (95-98); ABG PCO2 31 mmHg (35-45); ABG PH 7.51 pH Units (7.32-7.45); ABG PO2 74 mmHg (85-104); ABG TCO2 26 mEq/L (20-26)
[2019-11-02] MEDS ORDERED: Ringers Solution, Lactated 1,000 ML IVC SCH (16:00)
[2019-11-02] MEDS: Ringers Solution, Lactated 1,000 ML IVC SCH (16:58)
[2019-11-02] MEDS: *HR* HYDROcodone/Acet 5/325 mg TABLET PO PRN (21:12)
[2019-11-03] MEDS: Ringers Solution, Lactated 1,000 ML IVC SCH (02:36)
[2019-11-03 05:27] LABS: VBG Ionized Calcium 1.15 mmol/L (1.15-1.35)
[2019-11-03 05:37] LABS: White Blood Count 17.4 K/mcL (4.3-11.1)
[2019-11-03 05:38] LABS: Basophils # 0.1 K/mcL (0.0-0.2); Basophils % 0.3 %; Eosinophils # 0.1 K/mcL (0.0-0.6); Eosinophils % 0.3 %; Hematocrit 36.7 % (37.5-50.1); Hemoglobin 12.7 g/dL (12.9-16.9); Immature Granulocytes % 1.9 % (0-4); Lymphocytes # 1.8 K/mcL (0.6-4.6); Lymphocytes % 10.3 %; Mean Corpuscular HGB Conc 34.6 g/dL (31.6-35.5); Mean Corpuscular Hemoglobin 34.1 pg (28.0-33.3); Mean Corpuscular Volume 98.7 fL (83.0-100.0); Mean Platelet Volume 10.2 fL (9.4-12.4); Monocytes # 1.3 K/mcL (0.0-1.3); Monocytes % 7.7 %; Neutrophils # 13.8 K/mcL (1.6-8.9); Platelet Count 128 K/mcL (140-400); Red Blood Count 3.72 M/mcL (4.19-5.50); Red Cell Distribution Width 12.4 % (11.5-14.5); Segmented Neutrophils % 79.5 %
[2019-11-03] MEDS: *HR* Heparin 5,000 UNIT/ML VIAL SQ SCH ×2 (05:54→18:19)
[2019-11-03 06:02] LABS: BUN/Creatinine Ratio 19 (6-26); Blood Urea Nitrogen 23 mg/dL (8-23); Calcium 9.5 mg/dL (8.6-10.3); Chloride 106 mEq/L (98-107); Glucose 110 mg/dL (70-105); Magnesium 1.5 mg/dL (1.6-2.6); Osmolality,Calculated 292 (280-300); Potassium 3.8 mEq/L (3.5-5.1); Sodium 139 mEq/L (136-145); eGFR For African Americans > 60 (> 60); eGFR For Non-African Americans 58 (> 60)
[2019-11-03 06:06] LABS: Alanine Aminotransferase < 3 Units/L (7-52); Albumin 3.4 g/dL (3.5-5.7); Albumin/Globulin Ratio 1.3 (1.1-2.2); Alkaline Phosphatase 80 Units/L (34-104); Aspartate Amino Transferase 21 Units/L (13-39); BUN/Creatinine Ratio 18 (6-26); Blood Urea Nitrogen 22 mg/dL (8-23); Calcium 9.5 mg/dL (8.6-10.3); Chloride 106 mEq/L (98-107); Globulin 2.6 g/dL (2.4-3.5); Glucose 109 mg/dL (70-105); Osmolality,Calculated 292 (280-300); Phosphorous 3.1 mg/dL (2.7-4.5); Potassium 3.8 mEq/L (3.5-5.1); Sodium 139 mEq/L (136-145); eGFR For African Americans > 60 (> 60); eGFR For Non-African Americans 57 (> 60)
[2019-11-03 06:30] LABS: Carbon Dioxide 20 mEq/L (23-29)
[2019-11-03] MEDS ORDERED: cefTRIAXone 2,000 MG in Water for inj. (sterile) 20 ML IVP SCH (08:00)
[2019-11-03 08:21] LABS: Bilirubin,Urine Negative (Negative); Blood,Urine Large (Negative); Clarity,Urine Ex.Turbid (Clear); Color,Urine Yellow (Yellow); Glucose,Urine (UA) Normal (Normal); Ketones,Urine 40 mg/dL (Negative); Leukocyte Esterase,Urine Large (Negative); Nitrite,Urine Positive (Negative); PH,Urine 6.5 pH Units (5.0-8.0); Protein,Urine 100 mg/dL (Neg-Trace); Specific Gravity,Urine 1.011 (1.010-1.025); Urobilinogen,Urine Normal (Normal)
[2019-11-03] MEDS: Insulin LISPRO 300 UNITS/3 ML VIAL SQ SCH ×3 (08:23→16:53)
[2019-11-03] MEDS: Aspirin 81 MG TAB.CHEW PO SCH (08:27)
[2019-11-03 08:28] LABS: WBC,Urine TNTC per hpf (0-3)
[2019-11-03 08:29] LABS: Bacteria,Urine Present per hpf (None-Few); RBC,Urine Present per hpf (0-3)
[2019-11-03] MEDS: Acetaminophen 325 MG TABLET PO PRN (16:53)
[2019-11-03] MEDS: *HR* Metoprolol 5 MG/5 ML VIAL IVP PRN (17:23)
[2019-11-04 00:01] LABS: Acinetobacter baumannii by PCR Not Detected (Not Detect); Enterobacter cloacae Cmplx PCR DETECTED (Not Detect); Enterococcus by PCR Not Detected (Not Detect); Staphylococcus aureus by PCR Not Detected (Not Detect); Staphylococcus by PCR Not Detected (Not Detect); Streptococcus agalactiae(B)PCR Not Detected (Not Detect); Streptococcus by PCR Not Detected (Not Detect); Streptococcus pneumoniae PCR Not Detected (Not Detect); Streptococcus pyogenes (A) PCR Not Detected (Not Detect); blaKPC Carbapenem-Resist Gene Not Detected (Not Detect); mecA Methicillin-Resist Gene Not Detected (Not Detect); vanA/B Vancomycin-Resist Genes Not Detected (Not Detect)
[2019-11-04 00:02] LABS: Candida albicans by PCR Not Detected (Not Detect); Candida glabrata by PCR Not Detected (Not Detect); Candida krusei by PCR Not Detected (Not Detect); Candida parapsilosis by PCR Not Detected (Not Detect); Candida tropicalis by PCR Not Detected (Not Detect); Escherichia coli by PCR Not Detected (Not Detect); Klebsiella oxytoca by PCR Not Detected (Not Detect); Klebsiella pneumoniae by PCR Not Detected (Not Detect); Proteus by PCR Not Detected (Not Detect); Pseudomonas aeruginosa by PCR Not Detected (Not Detect); Serratia marcescens by PCR Not Detected (Not Detect)
[2019-11-04] MEDS: *HR* HYDROcodone/Acet 5/325 mg TABLET PO PRN ×3 (00:22→20:06)
[2019-11-04] MEDS: Cefepime HCl 1,000 MG in Water for inj. (sterile) 10 ML IVP SCH ×2 (00:53→16:08)
[2019-11-04] MEDS: *HR* Heparin 5,000 UNIT/ML VIAL SQ SCH ×2 (06:03→18:13)
[2019-11-04] MEDS: Insulin LISPRO 300 UNITS/3 ML VIAL SQ SCH ×3 (07:51→18:13)
[2019-11-04] MEDS: Aspirin 81 MG TAB.CHEW PO SCH (07:52)
[2019-11-04 23:41] LABS: Acinetobacter baumannii by PCR Not Detected (Not Detect); Candida albicans by PCR Not Detected (Not Detect); Candida glabrata by PCR Not Detected (Not Detect); Candida krusei by PCR Not Detected (Not Detect); Candida parapsilosis by PCR Not Detected (Not Detect); Candida tropicalis by PCR Not Detected (Not Detect); Enterobacter cloacae Cmplx PCR DETECTED (Not Detect); Enterococcus by PCR Not Detected (Not Detect); Escherichia coli by PCR Not Detected (Not Detect); Klebsiella oxytoca by PCR Not Detected (Not Detect); Klebsiella pneumoniae by PCR Not Detected (Not Detect); Proteus by PCR Not Detected (Not Detect); Pseudomonas aeruginosa by PCR Not Detected (Not Detect); Serratia marcescens by PCR Not Detected (Not Detect); Staphylococcus aureus by PCR Not Detected (Not Detect); Staphylococcus by PCR Not Detected (Not Detect); Streptococcus agalactiae(B)PCR Not Detected (Not Detect); Streptococcus by PCR Not Detected (Not Detect); Streptococcus pneumoniae PCR Not Detected (Not Detect); Streptococcus pyogenes (A) PCR Not Detected (Not Detect); blaKPC Carbapenem-Resist Gene Not Detected (Not Detect)
[2019-11-05] MEDS: Cefepime HCl 1,000 MG in Water for inj. (sterile) 10 ML IVP SCH ×2 (00:50→13:19)
[2019-11-05 03:20] LABS: Basophils % 0.5 %; Hematocrit 28.3 % (37.5-50.1); Hemoglobin 9.5 g/dL (12.9-16.9); Immature Granulocytes % 0.6 % (0-4); Lymphocytes # 0.8 K/mcL (0.6-4.6); Lymphocytes % 12.6 %; Mean Corpuscular HGB Conc 33.6 g/dL (31.6-35.5); Mean Corpuscular Hemoglobin 34.3 pg (28.0-33.3); Mean Corpuscular Volume 102.2 fL (83.0-100.0); Mean Platelet Volume 10.7 fL (9.4-12.4); Monocytes # 0.4 K/mcL (0.0-1.3); Monocytes % 6.5 %; Platelet Count 138 K/mcL (140-400); Red Blood Count 2.77 M/mcL (4.19-5.50); Red Cell Distribution Width 12.2 % (11.5-14.5); Segmented Neutrophils % 79.8 %; White Blood Count 6.2 K/mcL (4.3-11.1)
[2019-11-05 03:37] LABS: Albumin 2.9 g/dL (3.5-5.7); Albumin/Globulin Ratio 1.1 (1.1-2.2); Bilirubin,Total 0.6 mg/dL (0.3-1.0); Globulin 2.7 g/dL (2.4-3.5); Potassium 3.7 mEq/L (3.5-5.1); Total Protein 5.6 g/dL (6.4-8.9)
[2019-11-05] MEDS: *HR* HYDROcodone/Acet 5/325 mg TABLET PO PRN ×2 (06:42→17:51)
[2019-11-05] MEDS: *HR* Heparin 5,000 UNIT/ML VIAL SQ SCH ×2 (06:42→17:06)
[2019-11-05] MEDS ORDERED: Ringers Solution, Lactated 1,000 ML IVC SCH (07:30)
[2019-11-05] MEDS: Insulin LISPRO 300 UNITS/3 ML VIAL SQ SCH ×3 (08:23→17:05)
[2019-11-05] MEDS: Aspirin 81 MG TAB.CHEW PO SCH (08:24)
[2019-11-05] MEDS: Acetaminophen 325 MG TABLET PO PRN ×2 (13:21→17:52)
[2019-11-05 23:54] LABS: ABG Base Excess 3 mEq/L (-2 to 3); ABG HCO3 27 mEq/L (21-27); ABG Oxygen Saturation 97 % (95-98); ABG PCO2 37 mmHg (35-45); ABG PH 7.47 pH Units (7.32-7.45); ABG PO2 84 mmHg (85-104); ABG TCO2 28 mEq/L (20-26)
[2019-11-06] MEDS: Cefepime HCl 1,000 MG in Water for inj. (sterile) 10 ML IVP SCH ×2 (00:33→13:20)
[2019-11-06 05:00] LABS: Basophils % 0.6 %; Eosinophils # 0.1 K/mcL (0.0-0.6); Eosinophils % 0.7 %; Hematocrit 31.6 % (37.5-50.1); Hemoglobin 10.5 g/dL (12.9-16.9); Immature Granulocytes % 0.6 % (0-4); Lymphocytes # 1.3 K/mcL (0.6-4.6); Lymphocytes % 18.4 %; Mean Corpuscular HGB Conc 33.2 g/dL (31.6-35.5); Mean Corpuscular Hemoglobin 34.1 pg (28.0-33.3); Mean Corpuscular Volume 102.6 fL (83.0-100.0); Mean Platelet Volume 10.1 fL (9.4-12.4); Monocytes # 0.7 K/mcL (0.0-1.3); Monocytes % 9.3 %; Platelet Count 155 K/mcL (140-400); Red Blood Count 3.08 M/mcL (4.19-5.50); Red Cell Distribution Width 12.1 % (11.5-14.5); Segmented Neutrophils % 70.4 %
[2019-11-06 05:15] LABS: Alanine Aminotransferase 23 Units/L (7-52); Albumin 3.1 g/dL (3.5-5.7); Albumin/Globulin Ratio 1.1 (1.1-2.2); Alkaline Phosphatase 131 Units/L (34-104); Aspartate Amino Transferase 51 Units/L (13-39); BUN/Creatinine Ratio 22 (6-26); Bilirubin,Total 0.8 mg/dL (0.3-1.0); Blood Urea Nitrogen 29 mg/dL (8-23); Calcium 9.2 mg/dL (8.6-10.3); Carbon Dioxide 24 mEq/L (23-29); Chloride 109 mEq/L (98-107); Globulin 2.9 g/dL (2.4-3.5); Glucose 141 mg/dL (70-105); Osmolality,Calculated 302 (280-300); Sodium 142 mEq/L (136-145); eGFR For African Americans > 60 (> 60); eGFR For Non-African Americans 53 (> 60)
[2019-11-06] MEDS: *HR* Heparin 5,000 UNIT/ML VIAL SQ SCH ×2 (05:41→17:43)
[2019-11-06] MEDS: Aspirin 81 MG TAB.CHEW PO SCH (08:57)
[2019-11-06] MEDS: Insulin LISPRO 300 UNITS/3 ML VIAL SQ SCH ×3 (10:59→16:37)
[2019-11-06] MEDS: Ringers Solution, Lactated 1,000 ML IVC SCH (11:00)
[2019-11-06] MEDS ORDERED: levoFLOXacin 750 MG/150 ML 750 MG/150 ML BAG IVPB SCH (16:00)
[2019-11-06] MEDS: *HR* HYDROcodone/Acet 5/325 mg TABLET PO PRN (16:35)
[2019-11-07] MEDS: Ringers Solution, Lactated 1,000 ML IVC SCH ×2 (03:13→13:45)
[2019-11-07] MEDS: *HR* HYDROcodone/Acet 5/325 mg TABLET PO PRN ×2 (03:14→17:57)
[2019-11-07 04:48] LABS: Basophils % 0.2 %; Hematocrit 29.7 % (37.5-50.1); Immature Granulocytes % 0.7 % (0-4); Lymphocytes # 1.2 K/mcL (0.6-4.6); Lymphocytes % 13.5 %; Mean Corpuscular HGB Conc 33.7 g/dL (31.6-35.5); Mean Corpuscular Hemoglobin 33.4 pg (28.0-33.3); Mean Corpuscular Volume 99.3 fL (83.0-100.0); Mean Platelet Volume 9.6 fL (9.4-12.4); Monocytes % 11.3 %; Neutrophils # 6.4 K/mcL (1.6-8.9); Platelet Count 163 K/mcL (140-400); Red Blood Count 2.99 M/mcL (4.19-5.50); Red Cell Distribution Width 12.1 % (11.5-14.5); Segmented Neutrophils % 74.3 %; White Blood Count 8.6 K/mcL (4.3-11.1)
[2019-11-07 05:05] LABS: Alanine Aminotransferase 25 Units/L (7-52); Albumin 2.8 g/dL (3.5-5.7); Alkaline Phosphatase 103 Units/L (34-104); Aspartate Amino Transferase 43 Units/L (13-39); BUN/Creatinine Ratio 22 (6-26); Bilirubin,Total 0.7 mg/dL (0.3-1.0); Blood Urea Nitrogen 27 mg/dL (8-23); Calcium 9.1 mg/dL (8.6-10.3); Carbon Dioxide 26 mEq/L (23-29); Chloride 106 mEq/L (98-107); Globulin 2.9 g/dL (2.4-3.5); Glucose 159 mg/dL (70-105); Osmolality,Calculated 294 (280-300); Potassium 4.1 mEq/L (3.5-5.1); Sodium 138 mEq/L (136-145); Total Protein 5.7 g/dL (6.4-8.9); eGFR For African Americans > 60 (> 60); eGFR For Non-African Americans 59 (> 60)
[2019-11-07] MEDS: *HR* Heparin 5,000 UNIT/ML VIAL SQ SCH ×2 (05:24→17:56)
[2019-11-07] MEDS: Insulin LISPRO 300 UNITS/3 ML VIAL SQ SCH ×3 (08:58→17:56)
[2019-11-07] MEDS: Aspirin 81 MG TAB.CHEW PO SCH (08:59)
[2019-11-07 14:28] VITALS: BP 107/73
== END 2019-11-07 20:43 | DRG 252 ==
LOC: 2NNU 17:01 → EMEROOARM 17:01 → SUATTDRO 18:07 → 2NNU 18:52 → ICNU 10-31 17:39 → 3ANU 11-03 17:38
PROVIDERS: ADMIT Student in an Organized Health Care Education/Training Program; ATTEND Family Medicine

== ENCOUNTER 2019-12-02 13:49 | Inpatient (IN) ==
[2019-12-02] MEDS ORDERED: Isovue-370 500 ML BOTTLE IVP ONE (14:17)
[2019-12-02] MEDS ORDERED: 0.9 % Sodium Chloride 1,000 ML IVC ONE (14:23)
[2019-12-02 14:53] LABS: Amorphous Sediment,Urine Few per hpf (None-Few); Bacteria,Urine Moderate per hpf (None-Few); Bilirubin,Urine Negative (Negative); Blood,Urine Moderate (Negative); Clarity,Urine Turbid (Clear); Color,Urine Yellow (Yellow); Glucose,Urine (UA) Normal (Normal); Ketones,Urine Negative (Negative); Leukocyte Esterase,Urine Large (Negative); Mucus,Urine Few per lpf (None-Few); Nitrite,Urine Negative (Negative); Protein,Urine 100 mg/dL (Neg-Trace); RBC,Urine 30-50 per hpf (0-3); Specific Gravity,Urine 1.017 (1.010-1.025); Squamous Epithelial Cell,Urine Few per hpf (None-Few); Urobilinogen,Urine Normal (Normal); WBC,Urine TNTC per hpf (0-3)
[2019-12-02] MEDS ORDERED: cefTRIAXone 1,000 MG in 0.9 % Sodium Chloride Mini Bag 100 ML IVPB ONE (15:23)
[2019-12-02 15:30] LABS: Basophils % 0.3 %; Hemoglobin 12.7 g/dL (12.9-16.9); Immature Granulocytes % 0.6 % (0-4); Lymphocytes # 1.4 K/mcL (0.6-4.6); Lymphocytes % 12.4 %; Mean Corpuscular HGB Conc 32.6 g/dL (31.6-35.5); Mean Corpuscular Hemoglobin 34.3 pg (28.0-33.3); Mean Corpuscular Volume 105.4 fL (83.0-100.0); Monocytes # 1.1 K/mcL (0.0-1.3); Monocytes % 10.3 %; Neutrophils # 8.3 K/mcL (1.6-8.9); Platelet Count 156 K/mcL (140-400); Red Cell Distribution Width 13.2 % (11.5-14.5); Segmented Neutrophils % 76.4 %; White Blood Count 10.9 K/mcL (4.3-11.1)
[2019-12-02 15:55] LABS: Albumin 3.6 g/dL (3.5-5.7); Albumin/Globulin Ratio 1.1 (1.1-2.2); Bilirubin,Direct 0.3 mg/dL (0.0-0.2); Bilirubin,Indirect 1.2 mg/dL (0.0-1.0); Bilirubin,Total 1.5 mg/dL (0.3-1.0); Calcium 10.4 mg/dL (8.6-10.3); Globulin 3.3 g/dL (2.4-3.5); Potassium 4.1 mEq/L (3.5-5.1); Total Protein 6.9 g/dL (6.4-8.9); Troponin I 0.03 ng/mL (< 0.04)
[2019-12-02 15:58] LABS: Adenovirus Not Detected (Not Detect); Bordetella Pertussis Not Detected (Not Detect); Chlamydophila pneumoniae Not Detected (Not Detect); Coronavirus 229E Not Detected (Not Detect); Coronavirus HKU1 Not Detected (Not Detect); Coronavirus NL63 Not Detected (Not Detect); Coronavirus OC43 Not Detected (Not Detect); Human Metapneumovirus Not Detected (Not Detect); Human Rhinovirus/Enterovirus Not Detected (Not Detect); Influenza A Subtype 2009 H1 Not Detected (Not Detect); Influenza B Not Detected (Not Detect); Mycoplasma pneumoniae Not Detected (Not Detect); Parainfluenza Virus 1 Not Detected (Not Detect); Parainfluenza Virus 2 Not Detected (Not Detect); Parainfluenza Virus 3 Not Detected (Not Detect); Parainfluenza Virus 4 Not Detected (Not Detect); Respiratory Syncytial Virus Not Detected (Not Detect); SARS-CoV-2 Not Detected (Not Detect)
[2019-12-02] MEDS ORDERED: Ondansetron 4 MG/2 ML VIAL IVP PRN (17:36)
[2019-12-02] MEDS ORDERED: Naloxone 0.4 MG/ML INJ IVP PRN (17:36)
[2019-12-02] MEDS: 0.9 % Sodium Chloride 1,000 ML IVC SCH (20:49)
[2019-12-02] MEDS: levoFLOXacin 750 MG/150 ML 750 MG/150 ML BAG IVPB SCH (20:55)
[2019-12-03 03:34] LABS: Basophils % 0.2 %; Hematocrit 36.2 % (37.5-50.1); Hemoglobin 11.6 g/dL (12.9-16.9); Immature Granulocytes % 0.3 % (0-4); Lymphocytes # 1.3 K/mcL (0.6-4.6); Lymphocytes % 15.1 %; Mean Corpuscular Hemoglobin 33.3 pg (28.0-33.3); Mean Platelet Volume 9.4 fL (9.4-12.4); Monocytes % 11.2 %; Neutrophils # 6.3 K/mcL (1.6-8.9); Platelet Count 150 K/mcL (140-400); Red Blood Count 3.48 M/mcL (4.19-5.50); Red Cell Distribution Width 13.2 % (11.5-14.5); Segmented Neutrophils % 73.2 %; White Blood Count 8.6 K/mcL (4.3-11.1)
[2019-12-03 03:50] LABS: Albumin 3.4 g/dL (3.5-5.7); Albumin/Globulin Ratio 1.1 (1.1-2.2); Bilirubin,Direct 0.2 mg/dL (0.0-0.2); Bilirubin,Indirect 0.8 mg/dL (0.0-1.0); Calcium 10.3 mg/dL (8.6-10.3); Globulin 3.1 g/dL (2.4-3.5); Magnesium 1.9 mg/dL (1.6-2.6); Phosphorous 3.3 mg/dL (2.7-4.5); Potassium 4.1 mEq/L (3.5-5.1); Total Protein 6.5 g/dL (6.4-8.9)
[2019-12-03] MEDS: Aspirin 81 MG TAB.CHEW PO SCH (07:40)
[2019-12-03] MEDS: Cyanocobalamin (B-12) 1,000 MCG TABLET PO SCH (07:40)
[2019-12-03] MEDS: 0.9 % Sodium Chloride 1,000 ML IVC SCH (18:00)
[2019-12-04 04:24] LABS: Basophils % 0.3 %; Hematocrit 31.3 % (37.5-50.1); Hemoglobin 10.4 g/dL (12.9-16.9); Immature Granulocytes % 0.2 % (0-4); Lymphocytes # 1.4 K/mcL (0.6-4.6); Lymphocytes % 23.7 %; Mean Corpuscular HGB Conc 33.2 g/dL (31.6-35.5); Mean Corpuscular Hemoglobin 33.7 pg (28.0-33.3); Mean Corpuscular Volume 101.3 fL (83.0-100.0); Mean Platelet Volume 9.4 fL (9.4-12.4); Monocytes # 0.5 K/mcL (0.0-1.3); Monocytes % 8.4 %; Neutrophils # 4.1 K/mcL (1.6-8.9); Platelet Count 126 K/mcL (140-400); Red Blood Count 3.09 M/mcL (4.19-5.50); Red Cell Distribution Width 12.9 % (11.5-14.5); Segmented Neutrophils % 67.4 %; White Blood Count 6.1 K/mcL (4.3-11.1)
[2019-12-04 05:33] LABS: Calcium 9.1 mg/dL (8.6-10.3); Potassium 3.4 mEq/L (3.5-5.1)
[2019-12-04] MEDS: Aspirin 81 MG TAB.CHEW PO SCH (09:09)
[2019-12-04] MEDS: Cyanocobalamin (B-12) 1,000 MCG TABLET PO SCH (09:09)
[2019-12-04] MEDS: levoFLOXacin 750 MG/150 ML 750 MG/150 ML BAG IVPB SCH (17:17)
[2019-12-04] MEDS ORDERED: *HR* HYDROcodone/Acet 5/325 mg TABLET PO PRN (17:23)
[2019-12-05 01:11] LABS: Hematocrit 31.3 % (37.5-50.1); Hemoglobin 10.1 g/dL (12.9-16.9); Mean Corpuscular HGB Conc 32.3 g/dL (31.6-35.5); Mean Corpuscular Hemoglobin 32.7 pg (28.0-33.3); Mean Corpuscular Volume 101.3 fL (83.0-100.0); Mean Platelet Volume 9.7 fL (9.4-12.4); Platelet Count 139 K/mcL (140-400); Red Blood Count 3.09 M/mcL (4.19-5.50); Red Cell Distribution Width 12.9 % (11.5-14.5); White Blood Count 4.9 K/mcL (4.3-11.1)
[2019-12-05 01:24] LABS: BUN/Creatinine Ratio 24 (6-26); Blood Urea Nitrogen 33 mg/dL (8-23); Calcium 8.8 mg/dL (8.6-10.3); Carbon Dioxide 26 mEq/L (23-29); Chloride 109 mEq/L (98-107); Glucose 159 mg/dL (70-105); Osmolality,Calculated 301 (280-300); Potassium 3.7 mEq/L (3.5-5.1); Sodium 140 mEq/L (136-145); eGFR For African Americans > 60 (> 60); eGFR For Non-African Americans 50 (> 60)
[2019-12-05] MEDS: Cyanocobalamin (B-12) 1,000 MCG TABLET PO SCH (08:08)
[2019-12-05] MEDS: Aspirin 81 MG TAB.CHEW PO SCH (08:08)
[2019-12-05] MEDS ORDERED: FLU Vac QV 20-21 (6Month+)/PF 0.5 ML SYRINGE IM ONE (10:39)
[2019-12-05 11:25] VITALS: BP 117/73
== END 2019-12-05 13:38 | DRG 689 ==
LOC: EMEROOARM 13:49 → 3BNU 13:49 → SUATTDRO 20:03 → 3BNU 20:36
PROVIDERS: ADMIT Internal Medicine; ATTEND Internal Medicine

== ENCOUNTER 2019-12-26 14:38 | Inpatient (IN) ==
[2019-12-26] MEDS ORDERED: 0.9 % Sodium Chloride 1,000 ML IVC ONE (14:54)
[2019-12-26 15:20] LABS: VBG HCO3 21 mEq/L (21-27); VBG PCO2 33 mmHg (41-51); VBG PH 7.42 pH Units (7.32-7.42); VBG PO2 75 mmHg (25-50)
[2019-12-26 15:33] LABS: Hematocrit 41.2 % (37.5-50.1); Lymphocytes % 6.4 %
[2019-12-26 15:35] LABS: Hemoglobin 13.6 g/dL (12.9-16.9); Immature Granulocytes % 0.3 % (0-4); Immature Platelets 2.4 % (1.1-6.1); Lymphocytes # 0.4 K/mcL (0.6-4.6); Mean Corpuscular Hemoglobin 32.2 pg (28.0-33.3); Mean Corpuscular Volume 97.4 fL (83.0-100.0); Mean Platelet Volume 9.6 fL (9.4-12.4); Monocytes # 0.1 K/mcL (0.0-1.3); Monocytes % 1.8 %; Neutrophils # 5.7 K/mcL (1.6-8.9); Red Blood Count 4.23 M/mcL (4.19-5.50); Red Cell Distribution Width 12.7 % (11.5-14.5); Segmented Neutrophils % 91.5 %; White Blood Count 6.2 K/mcL (4.3-11.1)
[2019-12-26 15:37] LABS: Amorphous Sediment,Urine Few per hpf (None-Few); Bacteria,Urine Moderate per hpf (None-Few); Bilirubin,Urine Negative (Negative); Blood,Urine Large (Negative); Clarity,Urine Ex.Turbid (Clear); Color,Urine Yellow (Yellow); Glucose,Urine (UA) Normal (Normal); Ketones,Urine Negative (Negative); Leukocyte Esterase,Urine Large (Negative); Mucus,Urine Few per lpf (None-Few); Nitrite,Urine Negative (Negative); Protein,Urine 100 mg/dL (Neg-Trace); RBC,Urine TNTC per hpf (0-3); Specific Gravity,Urine 1.016 (1.010-1.025); Urobilinogen,Urine Normal (Normal); WBC,Urine TNTC per hpf (0-3)
[2019-12-26 15:56] LABS: Alanine Aminotransferase 15 Units/L (7-52); Albumin 3.5 g/dL (3.5-5.7); Albumin/Globulin Ratio 1.3 (1.1-2.2); Alkaline Phosphatase 109 Units/L (34-104); Aspartate Amino Transferase 21 Units/L (13-39); BUN/Creatinine Ratio 24 (6-26); Bilirubin,Direct 0.4 mg/dL (0.0-0.2); Bilirubin,Indirect 0.7 mg/dL (0.0-1.0); Bilirubin,Total 1.1 mg/dL (0.3-1.0); Blood Urea Nitrogen 43 mg/dL (8-23); Carbon Dioxide 23 mEq/L (23-29); Chloride 103 mEq/L (98-107); Globulin 2.8 g/dL (2.4-3.5); Glucose 211 mg/dL (70-105); Osmolality,Calculated 297 (280-300); Potassium 3.9 mEq/L (3.5-5.1); Sodium 135 mEq/L (136-145); Total Protein 6.3 g/dL (6.4-8.9); Troponin I < 0.03 ng/mL (< 0.04); eGFR For African Americans 45 (> 60); eGFR For Non-African Americans 37 (> 60)
[2019-12-26 16:14] LABS: Platelet Count 92 K/mcL (140-400)
[2019-12-26 16:17] LABS: Platelet Estimate Decreased (Normal)
[2019-12-26] MEDS ORDERED: Ringers Solution, Lactated 1,000 ML IVC ONE (16:45)
[2019-12-26] MEDS ORDERED: Acetaminophen 325 MG TABLET PO ONE (16:48)
[2019-12-26] MEDS: Cefepime HCl 2,000 MG in Water for inj. (sterile) 20 ML IVP SCH (17:27)
[2019-12-26] MEDS ORDERED: *HR* Promethazine 25 MG/ML VIAL IVP PRN (17:41)
[2019-12-26] MEDS ORDERED: Acetaminophen IV 500 MG/50 ML INFUS..BTL IVPB ONE (17:42)
[2019-12-26] MEDS ORDERED: 0.9 % Sodium Chloride 1,000 ML ONE ×2 (20:36→22:19)
[2019-12-26] MEDS ORDERED: Ketorolac 15 MG/ML VIAL IVP ONE (20:47)
[2019-12-26] MEDS: 0.9 % Sodium Chloride 1,000 ML IVC ONE (21:03)
[2019-12-26] MEDS ORDERED: Naloxone 0.4 MG/ML INJ IVP PRN (23:52)
[2019-12-27] MEDS: Cefepime HCl 2,000 MG in Water for inj. (sterile) 20 ML IVP SCH ×3 (00:08→17:10)
[2019-12-27] MEDS: Norepinephrine 4 MG/254 ML IV.SOLN IVC SCH ×3 (00:08→09:12)
[2019-12-27] MEDS: 0.9 % Sodium Chloride 1,000 ML IVC ONE (00:15)
[2019-12-27 00:32] LABS: VBG Ionized Calcium 1.12 mmol/L (1.15-1.35)
[2019-12-27 00:39] LABS: Hematocrit 32.2 % (37.5-50.1); Hemoglobin 10.6 g/dL (12.9-16.9); Immature Granulocytes % 1.6 % (0-4); Immature Platelets 3.7 % (1.1-6.1); Lymphocytes # 0.3 K/mcL (0.6-4.6); Mean Corpuscular HGB Conc 32.9 g/dL (31.6-35.5); Mean Corpuscular Hemoglobin 32.9 pg (28.0-33.3); Mean Platelet Volume 9.6 fL (9.4-12.4); Monocytes # 0.1 K/mcL (0.0-1.3); Monocytes % 2.4 %; Neutrophils # 4.1 K/mcL (1.6-8.9); Red Blood Count 3.22 M/mcL (4.19-5.50); White Blood Count 4.5 K/mcL (4.3-11.1)
[2019-12-27 00:43] LABS: Platelet Count 57 K/mcL (140-400)
[2019-12-27 00:44] LABS: Albumin 2.4 g/dL (3.5-5.7); Albumin/Globulin Ratio 1.1 (1.1-2.2); Bilirubin,Total 1.3 mg/dL (0.3-1.0); Calcium 7.4 mg/dL (8.6-10.3); Globulin 2.1 g/dL (2.4-3.5); Magnesium 1.2 mg/dL (1.6-2.6); Phosphorous 2.8 mg/dL (2.7-4.5); Potassium 3.3 mEq/L (3.5-5.1); Total Protein 4.5 g/dL (6.4-8.9)
[2019-12-27 01:09] LABS: Anisocytosis 1+ (Not Present); Platelet Estimate Decreased (Normal)
[2019-12-27] MEDS ORDERED: Calcium Gluconate 1gm/50mL 1 GM/50 ML BAG IVPB ONE (01:19)
[2019-12-27 04:34] LABS: Hematocrit 35.2 % (37.5-50.1); Hemoglobin 11.3 g/dL (12.9-16.9)
[2019-12-27 04:51] LABS: Calcium 7.8 mg/dL (8.6-10.3); Potassium 4.1 mEq/L (3.5-5.1)
[2019-12-27 07:19] LABS: VBG Ionized Calcium 1.17 mmol/L (1.15-1.35)
[2019-12-27 07:21] LABS: INR 1.3; Prothrombin Time 14.8 Seconds (9.4-12.1)
[2019-12-27] MEDS ORDERED: Piperacillin/Tazobactam 3.375 GM in Water for inj. (sterile) 20 ML IVP ONE (07:56)
[2019-12-27 09:09] LABS: Fibrinogen 421 mg/dL (169-393)
[2019-12-27 10:09] LABS: D-Dimer 46609 ng/mLFEU (0-500)
[2019-12-27 10:19] LABS: Adenovirus Not Detected (Not Detect); Bordetella Pertussis Not Detected (Not Detect); Chlamydophila pneumoniae Not Detected (Not Detect); Coronavirus 229E Not Detected (Not Detect); Coronavirus HKU1 Not Detected (Not Detect); Coronavirus NL63 Not Detected (Not Detect); Coronavirus OC43 Not Detected (Not Detect); Human Metapneumovirus Not Detected (Not Detect); Human Rhinovirus/Enterovirus Not Detected (Not Detect); Influenza A Subtype 2009 H1 Not Detected (Not Detect); Influenza B Not Detected (Not Detect); Mycoplasma pneumoniae Not Detected (Not Detect); Parainfluenza Virus 1 Not Detected (Not Detect); Parainfluenza Virus 2 Not Detected (Not Detect); Parainfluenza Virus 3 Not Detected (Not Detect); Parainfluenza Virus 4 Not Detected (Not Detect); Respiratory Syncytial Virus Not Detected (Not Detect)
[2019-12-28 03:07] LABS: Hemoglobin 11.3 g/dL (12.9-16.9); Mean Corpuscular Volume 99.1 fL (83.0-100.0)
[2019-12-28 03:09] LABS: Hematocrit 34.3 % (37.5-50.1); Immature Platelets 4.3 % (1.1-6.1); Mean Corpuscular HGB Conc 32.9 g/dL (31.6-35.5); Mean Corpuscular Hemoglobin 32.7 pg (28.0-33.3); Mean Platelet Volume 10.3 fL (9.4-12.4); Red Blood Count 3.46 M/mcL (4.19-5.50); White Blood Count 11.5 K/mcL (4.3-11.1)
[2019-12-28 03:16] LABS: Platelet Count 53 K/mcL (140-400)
[2019-12-28 03:33] LABS: Lymphocytes # 0.5 K/mcL (0.6-4.6); Monocytes # 1.2 K/mcL (0.0-1.3); Neutrophils # 9.9 K/mcL (1.6-8.9); Platelet Estimate Decreased (Normal)
[2019-12-28 03:38] LABS: Calcium 8.3 mg/dL (8.6-10.3); Potassium 3.8 mEq/L (3.5-5.1)
[2019-12-28] MEDS: Cefepime HCl 2,000 MG in Water for inj. (sterile) 20 ML IVP SCH (06:09)
[2019-12-28] MEDS ORDERED: *HR* Metoprolol 5 MG/5 ML VIAL IVP ONE (07:26)
[2019-12-28] MEDS ORDERED: Hydrocortisone Sodium Succ 100 MG/2 ML VIAL IVP SCH ×2 (08:00)
[2019-12-28] MEDS ORDERED: Meropenem 1,000 MG in Water for inj. (sterile) 20 ML IVP SCH (10:00)
[2019-12-28] MEDS ORDERED: *HR* Heparin 5,000 UNIT/ML VIAL SQ SCH (11:15)
[2019-12-28] MEDS ORDERED: *HR* Promethazine 25 MG/ML VIAL IVP PRN (12:10)
[2019-12-28] MEDS ORDERED: Naloxone 0.4 MG/ML INJ IVP PRN (12:10)
[2019-12-28] MEDS: Meropenem 1,000 MG in Water for inj. (sterile) 20 ML IVP SCH (17:06)
[2019-12-28] MEDS: *HR* Heparin 5,000 UNIT/ML VIAL SQ SCH (17:06)
[2019-12-28] MEDS ORDERED: *HR* Metoprolol 5 MG/5 ML VIAL IVP STA (19:24)
[2019-12-29] MEDS: Acetaminophen 650 MG RECTAL SUPP RC PRN ×2 (00:31→20:54)
[2019-12-29] MEDS: *HR* Metoprolol 5 MG/5 ML VIAL IVP SCH ×5 (00:33→23:46)
[2019-12-29] MEDS: Meropenem 1,000 MG in Water for inj. (sterile) 20 ML IVP SCH ×3 (02:15→17:04)
[2019-12-29 04:39] LABS: Basophils % 0.1 %; Lymphocytes % 5.4 %; Mean Corpuscular Volume 99.7 fL (83.0-100.0); Monocytes % 3.9 %; Red Cell Distribution Width 13.1 % (11.5-14.5)
[2019-12-29 04:41] LABS: Hematocrit 34.5 % (37.5-50.1); Hemoglobin 11.5 g/dL (12.9-16.9); Immature Granulocytes % 0.3 % (0-4); Immature Platelets 4.5 % (1.1-6.1); Lymphocytes # 0.5 K/mcL (0.6-4.6); Mean Corpuscular HGB Conc 33.3 g/dL (31.6-35.5); Mean Corpuscular Hemoglobin 33.2 pg (28.0-33.3); Mean Platelet Volume 10.7 fL (9.4-12.4); Monocytes # 0.4 K/mcL (0.0-1.3); Red Blood Count 3.46 M/mcL (4.19-5.50); Segmented Neutrophils % 90.3 %; White Blood Count 9.8 K/mcL (4.3-11.1)
[2019-12-29 04:49] LABS: Potassium 3.5 mEq/L (3.5-5.1)
[2019-12-29 05:19] LABS: Neutrophils # 8.9 K/mcL (1.6-8.9); Platelet Count 67 K/mcL (140-400)
[2019-12-29] MEDS: *HR* Heparin 5,000 UNIT/ML VIAL SQ SCH ×2 (06:47→17:03)
[2019-12-29] MEDS: Aspirin 81 MG TAB.CHEW PO SCH (07:25)
[2019-12-29] MEDS: Cyanocobalamin (B-12) 1,000 MCG TABLET PO SCH (07:25)
[2019-12-29] MEDS ORDERED: E-Z-PAQUE (BARIUM SULF) SUSP 1 BOTTLE PO ONE (10:23)
[2019-12-29] MEDS ORDERED: E-Z-HD (BARIUM SULF) SUSPENSION PO ONE (10:23)
[2019-12-29] MEDS: Doxycycline 100 MG in 0.9 % Sodium Chloride Mini Bag 100 ML IVPB SCH (18:42)
[2019-12-29] MEDS ORDERED: Doxycycline 100 MG CAPSULE PO SCH (21:00)
[2019-12-30] MEDS: Meropenem 1,000 MG in Water for inj. (sterile) 20 ML IVP SCH ×3 (01:55→22:17)
[2019-12-30] MEDS: *HR* Metoprolol 5 MG/5 ML VIAL IVP SCH ×4 (05:54→20:19)
[2019-12-30] MEDS: Doxycycline 100 MG in 0.9 % Sodium Chloride Mini Bag 100 ML IVPB SCH ×2 (05:54→18:20)
[2019-12-30] MEDS: *HR* Heparin 5,000 UNIT/ML VIAL SQ SCH ×2 (05:54→18:19)
[2019-12-30] MEDS: Aspirin 81 MG TAB.CHEW PO SCH (09:58)
[2019-12-30] MEDS: Cyanocobalamin (B-12) 1,000 MCG TABLET PO SCH (09:58)
[2019-12-30 14:41] LABS: Hemoglobin 13.3 g/dL (12.9-16.9); Mean Corpuscular HGB Conc 33.3 g/dL (31.6-35.5); Mean Corpuscular Hemoglobin 33.5 pg (28.0-33.3); Mean Corpuscular Volume 100.8 fL (83.0-100.0); Platelet Count 62 K/mcL (140-400); Red Blood Count 3.97 M/mcL (4.19-5.50); Red Cell Distribution Width 13.2 % (11.5-14.5); White Blood Count 4.2 K/mcL (4.3-11.1)
[2019-12-30 14:55] LABS: Calcium 9.2 mg/dL (8.6-10.3); Potassium 3.3 mEq/L (3.5-5.1)
[2019-12-30] MEDS ORDERED: *HR* LORazepam 2 MG/ML VIAL IVP ONE (17:57)
[2019-12-30] MEDS ORDERED: 0.9 % Sodium Chloride 1,000 ML IVC SCH ×2 (22:15)
[2019-12-30] MEDS ORDERED: 0.9 % Sodium Chloride 1,000 ML ONE (22:18)
[2019-12-30] MEDS: Acetaminophen IV 1,000 MG/100 ML INFUS..BTL IVPB SCH (22:37)
[2019-12-31] MEDS ORDERED: Haloperidol Lactate 5 MG/ML VIAL IVP ONE (00:44)
[2019-12-31] MEDS ORDERED: 0.9 % Sodium Chloride 1,000 ML IVC SCH (00:45)
[2019-12-31 01:09] LABS: Mean Platelet Volume 11.3 fL (9.4-12.4); Red Cell Distribution Width 13.3 % (11.5-14.5)
[2019-12-31 01:11] LABS: Hemoglobin 11.6 g/dL (12.9-16.9); Mean Corpuscular HGB Conc 32.2 g/dL (31.6-35.5); Mean Corpuscular Hemoglobin 32.2 pg (28.0-33.3); Red Blood Count 3.6 M/mcL (4.19-5.50); White Blood Count 2.9 K/mcL (4.3-11.1)
[2019-12-31 01:31] LABS: Calcium 8.9 mg/dL (8.6-10.3); Potassium 3.2 mEq/L (3.5-5.1)
[2019-12-31] MEDS: *HR* Metoprolol 5 MG/5 ML VIAL IVP SCH ×4 (05:24→23:26)
[2019-12-31] MEDS: *HR* Heparin 5,000 UNIT/ML VIAL SQ SCH ×2 (05:29→18:05)
[2019-12-31] MEDS: Acetaminophen IV 1,000 MG/100 ML INFUS..BTL IVPB SCH ×3 (05:29→22:14)
[2019-12-31] MEDS: Doxycycline 100 MG in 0.9 % Sodium Chloride Mini Bag 100 ML IVPB SCH ×2 (06:23→18:05)
[2019-12-31] MEDS: Cyanocobalamin (B-12) 1,000 MCG TABLET PO SCH (08:19)
[2019-12-31] MEDS: Aspirin 81 MG TAB.CHEW PO SCH (08:19)
[2019-12-31] MEDS: D5% in Water 1,000 ML IVC SCH ×2 (08:19→22:14)
[2019-12-31] MEDS: Meropenem 1,000 MG in Water for inj. (sterile) 20 ML IVP SCH ×2 (10:59→22:12)
[2019-12-31 12:26] LABS: Potassium 3.4 mEq/L (3.5-5.1)
[2019-12-31 19:19] LABS: Calcium 8.6 mg/dL (8.6-10.3); Potassium 4.4 mEq/L (3.5-5.1)
[2020-01-01 03:25] LABS: Mean Corpuscular Volume 102.2 fL (83.0-100.0)
[2020-01-01 03:26] LABS: Hematocrit 37.2 % (37.5-50.1); Hemoglobin 11.7 g/dL (12.9-16.9); Immature Platelets 6.3 % (1.1-6.1); Mean Corpuscular HGB Conc 31.5 g/dL (31.6-35.5); Mean Corpuscular Hemoglobin 32.1 pg (28.0-33.3); Mean Platelet Volume 11.5 fL (9.4-12.4); Red Blood Count 3.64 M/mcL (4.19-5.50); Red Cell Distribution Width 13.4 % (11.5-14.5); White Blood Count 3.4 K/mcL (4.3-11.1)
[2020-01-01 03:35] LABS: Calcium 8.5 mg/dL (8.6-10.3); Potassium 3.5 mEq/L (3.5-5.1)
[2020-01-01] MEDS: *HR* Heparin 5,000 UNIT/ML VIAL SQ SCH ×2 (06:28→17:16)
[2020-01-01] MEDS: *HR* Metoprolol 5 MG/5 ML VIAL IVP SCH ×4 (06:34→23:00)
[2020-01-01] MEDS: Acetaminophen IV 1,000 MG/100 ML INFUS..BTL IVPB SCH (06:34)
[2020-01-01] MEDS: Doxycycline 100 MG in 0.9 % Sodium Chloride Mini Bag 100 ML IVPB SCH (06:44)
[2020-01-01] MEDS: Cyanocobalamin (B-12) 1,000 MCG TABLET PO SCH (10:32)
[2020-01-01] MEDS: Meropenem 1,000 MG in Water for inj. (sterile) 20 ML IVP SCH ×2 (10:32→21:10)
[2020-01-01] MEDS: Aspirin 81 MG TAB.CHEW PO SCH (10:32)
[2020-01-01] MEDS ORDERED: Acetaminophen 325 MG TABLET PO PRN (12:29)
[2020-01-01] MEDS: D5% in Water 1,000 ML IVC SCH (17:34)
[2020-01-01 18:16] LABS: ABG Base Excess 0 mEq/L (-2 to 3); ABG HCO3 22 mEq/L (21-27); ABG Oxygen Saturation 94 % (95-98); ABG PCO2 27 mmHg (35-45); ABG PH 7.51 pH Units (7.32-7.45); ABG PO2 61 mmHg (85-104); ABG TCO2 23 mEq/L (20-26)
[2020-01-01] MEDS ORDERED: Levalbuterol Neb 1.25 MG/3 ML ONE (18:17)
[2020-01-01] MEDS: Levalbuterol Neb 1.25 MG/3 ML IH SCH ×2 (18:18→21:52)
[2020-01-01] MEDS ORDERED: Acetaminophen IV 1,000 MG/100 ML INFUS..BTL IVPB ONE (19:30)
[2020-01-01 20:15] LABS: Adenovirus Not Detected (Not Detect); Bordetella Pertussis Not Detected (Not Detect); Chlamydophila pneumoniae Not Detected (Not Detect); Coronavirus 229E Not Detected (Not Detect); Coronavirus HKU1 Not Detected (Not Detect); Coronavirus NL63 Not Detected (Not Detect); Coronavirus OC43 Not Detected (Not Detect); Human Metapneumovirus Not Detected (Not Detect); Human Rhinovirus/Enterovirus Not Detected (Not Detect); Influenza A Subtype 2009 H1 Not Detected (Not Detect); Influenza B Not Detected (Not Detect); Mycoplasma pneumoniae Not Detected (Not Detect); Parainfluenza Virus 1 Not Detected (Not Detect); Parainfluenza Virus 2 Not Detected (Not Detect); Parainfluenza Virus 3 Not Detected (Not Detect); Parainfluenza Virus 4 Not Detected (Not Detect); Respiratory Syncytial Virus Not Detected (Not Detect); SARS-CoV-2 Not Detected (Not Detect)
[2020-01-01] MEDS: Doxycycline 100 MG CAPSULE PO SCH (21:06)
[2020-01-01] MEDS ORDERED: Isovue-370 500 ML BOTTLE IVP ONE (21:28)
[2020-01-01] MEDS ORDERED: *HR* Heparin 5,000 UNIT/ML VIAL IVP ONE (21:44)
[2020-01-01] MEDS ORDERED: *HR* Heparin 5,000 UNIT/ML VIAL IVP PRN ×2 (21:44)
[2020-01-01] MEDS ORDERED: Heparin 25,000UNIT/250ML 1/2NS 25,000 UNIT/250 ML IV.SOLN IVC SCH (21:45)
[2020-01-01 23:37] LABS: INR 1.2; Prothrombin Time 13.7 Seconds (9.4-12.1)
[2020-01-01 23:38] LABS: Heparin anti-factor XA UFH 0.19 IU/mL (0.30-0.70)
[2020-01-02 01:07] LABS: Hematocrit 39.1 % (37.5-50.1); Hemoglobin 12.7 g/dL (12.9-16.9); Mean Corpuscular HGB Conc 32.5 g/dL (31.6-35.5); Red Cell Distribution Width 13.2 % (11.5-14.5)
[2020-01-02 01:09] LABS: Immature Platelets 5.2 % (1.1-6.1); Mean Corpuscular Volume 98.5 fL (83.0-100.0); Mean Platelet Volume 10.8 fL (9.4-12.4); Red Blood Count 3.97 M/mcL (4.19-5.50); White Blood Count 5.2 K/mcL (4.3-11.1)
[2020-01-02 01:35] LABS: Calcium 8.8 mg/dL (8.6-10.3); Potassium 3.4 mEq/L (3.5-5.1)
[2020-01-02] MEDS: Levalbuterol Neb 1.25 MG/3 ML IH SCH ×3 (03:38→15:42)
[2020-01-02] MEDS: *HR* Metoprolol 5 MG/5 ML VIAL IVP SCH ×3 (07:29→18:20)
[2020-01-02] MEDS: Meropenem 1,000 MG in Water for inj. (sterile) 20 ML IVP SCH (09:55)
[2020-01-02] MEDS: Cyanocobalamin (B-12) 1,000 MCG TABLET PO SCH (10:25)
[2020-01-02] MEDS: Doxycycline 100 MG CAPSULE PO SCH (10:25)
[2020-01-02] MEDS: Aspirin 81 MG TAB.CHEW PO SCH (10:25)
[2020-01-02 10:26] LABS: ABG Base Excess -1 mEq/L (-2 to 3); ABG HCO3 23 mEq/L (21-27); ABG Oxygen Saturation 95 % (95-98); ABG PCO2 31 mmHg (35-45); ABG PH 7.47 pH Units (7.32-7.45); ABG PO2 68 mmHg (85-104); ABG TCO2 24 mEq/L (20-26)
[2020-01-02] MEDS ORDERED: Doxycycline 100 MG in 0.9 % Sodium Chloride Mini Bag 100 ML IVPB SCH (18:00)
[2020-01-02] MEDS ORDERED: D5% in Water 1,000 ML IVC SCH (18:30)
[2020-01-02 19:15] VITALS: BP 124/81
[2020-01-03] MEDS ORDERED: Acyclovir 600 MG in D5% in Water 100 ML IVPB SCH
== END 2020-01-02 20:00 | disposition other institution (70) | DRG 871 ==
LOC: EMEROOARM 14:38 → 3ANU 14:38 → ICNU 21:58 → SUATTDRO 23:52 → 2ANU 12-29 12:46
PROVIDERS: ADMIT Internal Medicine; ATTEND Internal Medicine

== ENCOUNTER 2020-01-17 22:41 | Inpatient (IN) ==
[2020-01-17] MEDS ORDERED: *HR* Heparin 5,000 UNIT/ML VIAL IVP PRN ×2 (23:36)
[2020-01-17] MEDS ORDERED: *HR* Heparin 5,000 UNIT/ML VIAL IVP ONE (23:36)
[2020-01-17] MEDS ORDERED: 0.9 % Sodium Chloride 1,000 ML IVC ONE (23:43)
[2020-01-17 23:55] LABS: Bilirubin,Urine Small (Negative); Blood,Urine Large (Negative); Clarity,Urine Cloudy (Clear); Color,Urine Brown (Yellow); Glucose,Urine (UA) Normal (Normal); Ketones,Urine Trace mg/dL (Negative); Leukocyte Esterase,Urine Large (Negative); Nitrite,Urine Negative (Negative); Protein,Urine >=300 mg/dL (Neg-Trace); Urobilinogen,Urine Normal (Normal)
[2020-01-17 23:57] LABS: RBC,Urine Present per hpf (0-3); WBC,Urine Present per hpf (0-3)
[2020-01-17 23:58] LABS: Bacteria,Urine Present per hpf (None-Few); Calcium Oxalate Crystals,Urine Present
[2020-01-18] MEDS ORDERED: cefTRIAXone 1,000 MG in Water for inj. (sterile) 10 ML IVP ONE (00:11)
[2020-01-18 01:39] LABS: Basophils # 0.1 K/mcL (0.0-0.2); Basophils % 0.9 %; Hematocrit 42.4 % (37.5-50.1); Immature Granulocytes % 0.7 % (0-4); Lymphocytes # 2.6 K/mcL (0.6-4.6); Lymphocytes % 19.3 %; Mean Corpuscular Hemoglobin 31.5 pg (28.0-33.3); Mean Corpuscular Volume 95.3 fL (83.0-100.0); Mean Platelet Volume 9.7 fL (9.4-12.4); Monocytes # 1.3 K/mcL (0.0-1.3); Monocytes % 9.9 %; Neutrophils # 9.2 K/mcL (1.6-8.9); Platelet Count 318 K/mcL (140-400); Red Blood Count 4.45 M/mcL (4.19-5.50); Red Cell Distribution Width 15.3 % (11.5-14.5); Segmented Neutrophils % 69.2 %; White Blood Count 13.2 K/mcL (4.3-11.1)
[2020-01-18 01:43] LABS: VBG HCO3 24 mEq/L (21-27); VBG PCO2 33 mmHg (41-51); VBG PH 7.48 pH Units (7.32-7.42); VBG PO2 143 mmHg (25-50)
[2020-01-18] MEDS: Heparin 25,000UNIT/250ML 1/2NS 25,000 UNIT/250 ML IV.SOLN IVC SCH (02:00)
[2020-01-18 02:11] LABS: Albumin 3.4 g/dL (3.5-5.7); Albumin/Globulin Ratio 0.7 (1.1-2.2); Bilirubin,Total 0.7 mg/dL (0.3-1.0); Calcium 12.5 mg/dL (8.6-10.3); Globulin 4.7 g/dL (2.4-3.5); Potassium 4.5 mEq/L (3.5-5.1); Total Protein 8.1 g/dL (6.4-8.9); Troponin I 0.03 ng/mL (< 0.04)
[2020-01-18] MEDS ORDERED: 0.9 % Sodium Chloride 1,000 ML IVC ONE (05:03)
[2020-01-18] MEDS ORDERED: Meropenem 1,000 MG in 0.9 % Sodium Chloride Mini Bag 100 ML IVPB ONE (05:05)
[2020-01-18] MEDS ORDERED: Naloxone 0.4 MG/ML INJ IVP PRN (05:37)
[2020-01-18] MEDS ORDERED: Ondansetron 4 MG/2 ML VIAL IVP PRN (05:37)
[2020-01-18] MEDS ORDERED: *HR* Dextrose 50 % in Water (Vial) 50 ML VIAL IVP PRN (05:43)
[2020-01-18] MEDS ORDERED: D5% in Water 1,000 ML IVC PRN (05:43)
[2020-01-18] MEDS ORDERED: Dextrose Gel 15 GM/37.5 ML TUBE PO PRN ×2 (05:43)
[2020-01-18] MEDS ORDERED: 0.9 % Sodium Chloride 1,000 ML IVC SCH (05:45)
[2020-01-18] MEDS ORDERED: Vancomycin 1 EACH in 0.9 % Sodium Chloride 1 ML IVPB PRN (07:00)
[2020-01-18 08:37] LABS: Adenovirus Not Detected (Not Detect); Bordetella Pertussis Not Detected (Not Detect); Chlamydophila pneumoniae Not Detected (Not Detect); Coronavirus 229E Not Detected (Not Detect); Coronavirus HKU1 Not Detected (Not Detect); Coronavirus NL63 Not Detected (Not Detect); Coronavirus OC43 Not Detected (Not Detect); Human Metapneumovirus Not Detected (Not Detect); Human Rhinovirus/Enterovirus Not Detected (Not Detect); Influenza A Subtype 2009 H1 Not Detected (Not Detect); Influenza B Not Detected (Not Detect); Mycoplasma pneumoniae Not Detected (Not Detect); Parainfluenza Virus 1 Not Detected (Not Detect); Parainfluenza Virus 2 Not Detected (Not Detect); Parainfluenza Virus 3 Not Detected (Not Detect); Parainfluenza Virus 4 Not Detected (Not Detect); Respiratory Syncytial Virus Not Detected (Not Detect); SARS-CoV-2 Not Detected (Not Detect)
[2020-01-18] MEDS: Insulin LISPRO 300 UNITS/3 ML VIAL SQ SCH ×4 (11:50→23:46)
[2020-01-18] MEDS: Meropenem 1,000 MG in Water for inj. (sterile) 20 ML IVP SCH ×2 (11:50→17:18)
[2020-01-18] MEDS: 0.9 % Sodium Chloride 1,000 ML IVC SCH ×2 (12:01→16:18)
[2020-01-18 14:40] LABS: Calcium 11.2 mg/dL (8.6-10.3); Potassium 4.3 mEq/L (3.5-5.1)
[2020-01-19 04:23] LABS: Calcium 10.8 mg/dL (8.6-10.3); Magnesium 2.1 mg/dL (1.6-2.6); Phosphorous 3.8 mg/dL (2.7-4.5)
[2020-01-19] MEDS: Insulin LISPRO 300 UNITS/3 ML VIAL SQ SCH ×3 (05:01→18:42)
[2020-01-19] MEDS: Meropenem 1,000 MG in Water for inj. (sterile) 20 ML IVP SCH ×2 (05:05→18:47)
[2020-01-19 05:29] LABS: Basophils # 0.1 K/mcL (0.0-0.2); Basophils % 0.7 %; Eosinophils % 0.3 %; Hematocrit 39.3 % (37.5-50.1); Hemoglobin 12.4 g/dL (12.9-16.9); Immature Granulocytes % 0.9 % (0-4); Lymphocytes # 0.9 K/mcL (0.6-4.6); Lymphocytes % 8.3 %; Mean Corpuscular HGB Conc 31.6 g/dL (31.6-35.5); Mean Corpuscular Hemoglobin 31.2 pg (28.0-33.3); Mean Corpuscular Volume 98.7 fL (83.0-100.0); Mean Platelet Volume 10.3 fL (9.4-12.4); Monocytes # 0.8 K/mcL (0.0-1.3); Monocytes % 7.2 %; Neutrophils # 8.6 K/mcL (1.6-8.9); Platelet Count 182 K/mcL (140-400); Red Blood Count 3.98 M/mcL (4.19-5.50); Red Cell Distribution Width 15.5 % (11.5-14.5); Segmented Neutrophils % 82.6 %; White Blood Count 10.4 K/mcL (4.3-11.1)
[2020-01-19] MEDS ORDERED: 0.9 % Sodium Chloride 1,000 ML IVC ONE ×2 (07:32→07:35)
[2020-01-19] MEDS ORDERED: 0.9 % Sodium Chloride 1,000 ML ONE (07:41)
[2020-01-19] MEDS ORDERED: D5% in Water 1,000 ML IVC SCH ×2 (07:45→17:35)
[2020-01-19] MEDS: Heparin 25,000UNIT/250ML 1/2NS 25,000 UNIT/250 ML IV.SOLN IVC SCH ×2 (08:58→11:50)
[2020-01-19] MEDS ORDERED: Cyanocobalamin (B-12) 1,000 MCG TABLET PO SCH (09:00)
[2020-01-19] MEDS ORDERED: Cyanocobalamin (B-12) 1,000 MCG TABLET GTUBE SCH (09:00)
[2020-01-19] MEDS ORDERED: Aspirin 81 MG TAB.CHEW GTUBE SCH (09:00)
[2020-01-19] MEDS ORDERED: Aspirin 81 MG TAB.CHEW PO SCH (09:00)
[2020-01-19] MEDS ORDERED: Ropivacaine/PF 0.5% 30 ML VIAL ONE ×2 (13:40→13:41)
[2020-01-19] MEDS ORDERED: *HR* Labetalol 20 MG/4 ML SYRINGE IVP PRN (13:57)
[2020-01-19] MEDS ORDERED: *HR* HYDROmorphone PF 0.5 MG/0.5 ML SYRINGE IVP PRN (13:57)
[2020-01-19] MEDS ORDERED: Ondansetron 4 MG/2 ML VIAL IVP PRN ×2 (13:57→17:35)
[2020-01-19] MEDS ORDERED: Albumin Human 5% 25.0 GM/500 ML IV.SOLN ONE (14:21)
[2020-01-19] MEDS ORDERED: *HR* Midazolam HCl 2 MG/2 ML VIAL ONE (14:23)
[2020-01-19] MEDS ORDERED: *HR* FentaNYL (PF) 100 MCG/2 ML VIAL ONE ×2 (14:23→15:48)
[2020-01-19] MEDS ORDERED: *HR* Propofol 200 MG/20 ML VIAL IVP ONE ×2 (14:24→15:49)
[2020-01-19] MEDS ORDERED: EPINEPHrine 1 MG/ML VIAL ONE (14:43)
[2020-01-19] MEDS ORDERED: *HR* Phenylephrine 10 MG/ML VIAL ONE (14:45)
[2020-01-19] MEDS ORDERED: EPHEDrine 50 MG/ML VIAL ONE (14:49)
[2020-01-19] MEDS ORDERED: Lidocaine HCL 4 ML Topical Solution (Laryng-O-Jet Kit Sterile Pak) TP ONE (15:36)
[2020-01-19] MEDS ORDERED: ceFAZolin 2,000 MG in Water for inj. (sterile) 20 ML IVP ONE (15:53)
[2020-01-19] MEDS ORDERED: Dextrose Gel 15 GM/37.5 ML TUBE PO PRN ×2 (17:35)
[2020-01-19] MEDS ORDERED: *HR* Dextrose 50 % in Water (Vial) 50 ML VIAL IVP PRN (17:35)
[2020-01-19] MEDS ORDERED: Vancomycin 1 EACH in 0.9 % Sodium Chloride 1 ML IVPB PRN (17:35)
[2020-01-19] MEDS ORDERED: Naloxone 0.4 MG/ML INJ IVP PRN (17:35)
[2020-01-19] MEDS ORDERED: D5% in Water 1,000 ML IVC PRN (17:35)
[2020-01-20] MEDS: Insulin LISPRO 300 UNITS/3 ML VIAL SQ SCH ×4 (03:36→18:17)
[2020-01-20] MEDS: Meropenem 1,000 MG in Water for inj. (sterile) 20 ML IVP SCH ×2 (05:43→17:35)
[2020-01-20 06:45] LABS: Basophils % 0.3 %; Hematocrit 34.2 % (37.5-50.1); Immature Granulocytes % 0.8 % (0-4); Lymphocytes # 0.8 K/mcL (0.6-4.6); Mean Corpuscular HGB Conc 31.6 g/dL (31.6-35.5); Mean Corpuscular Hemoglobin 31.9 pg (28.0-33.3); Mean Corpuscular Volume 100.9 fL (83.0-100.0); Mean Platelet Volume 10.1 fL (9.4-12.4); Monocytes # 0.6 K/mcL (0.0-1.3); Monocytes % 7.7 %; Neutrophils # 6.4 K/mcL (1.6-8.9); Nucleated Red Blood Cells 0.3 /100 WBC (0); Platelet Count 194 K/mcL (140-400); Red Blood Count 3.39 M/mcL (4.19-5.50); Red Cell Distribution Width 15.5 % (11.5-14.5); Segmented Neutrophils % 81.2 %; White Blood Count 7.9 K/mcL (4.3-11.1)
[2020-01-20 06:46] LABS: Hemoglobin 10.8 g/dL (12.9-16.9)
[2020-01-20 07:05] LABS: Calcium 10.1 mg/dL (8.6-10.3); Magnesium 1.7 mg/dL (1.6-2.6); Phosphorous 1.7 mg/dL (2.7-4.5); Potassium 3.5 mEq/L (3.5-5.1)
[2020-01-20] MEDS ORDERED: 0.9 % Sodium Chloride 1,000 ML IVC ONE (07:07)
[2020-01-20] MEDS ORDERED: Vancomycin 500 MG in 0.9 % Sodium Chloride Mini Bag 100 ML IVPB ONE (07:26)
[2020-01-20] MEDS: Cyanocobalamin (B-12) 1,000 MCG TABLET GTUBE SCH (07:27)
[2020-01-20] MEDS: Aspirin 81 MG TAB.CHEW GTUBE SCH (07:27)
[2020-01-20] MEDS: 0.9 % Sodium Chloride 1,000 ML IVC SCH ×2 (07:28→17:40)
[2020-01-21] MEDS: 0.9 % Sodium Chloride 1,000 ML IVC SCH ×3 (02:14→17:30)
[2020-01-21] MEDS: Insulin LISPRO 300 UNITS/3 ML VIAL SQ SCH ×5 (04:39→23:20)
[2020-01-21] MEDS: Meropenem 1,000 MG in Water for inj. (sterile) 20 ML IVP SCH ×2 (06:37→17:32)
[2020-01-21] MEDS ORDERED: Potassium Phosphate 44 MEQ in 0.9 % Sodium Chloride 250 ML IVPB ONE (07:06)
[2020-01-21] MEDS: Aspirin 81 MG TAB.CHEW GTUBE SCH (07:28)
[2020-01-21] MEDS: Cyanocobalamin (B-12) 1,000 MCG TABLET GTUBE SCH (07:40)
[2020-01-21 12:48] LABS: Basophils % 0.3 %; Hematocrit 32.7 % (37.5-50.1); Hemoglobin 10.5 g/dL (12.9-16.9); Immature Granulocytes % 0.8 % (0-4); Lymphocytes # 1.2 K/mcL (0.6-4.6); Lymphocytes % 8.8 %; Mean Corpuscular HGB Conc 32.1 g/dL (31.6-35.5); Mean Corpuscular Hemoglobin 32.4 pg (28.0-33.3); Mean Corpuscular Volume 100.9 fL (83.0-100.0); Mean Platelet Volume 10.2 fL (9.4-12.4); Monocytes % 7.6 %; Neutrophils # 11.1 K/mcL (1.6-8.9); Platelet Count 152 K/mcL (140-400); Red Blood Count 3.24 M/mcL (4.19-5.50); Red Cell Distribution Width 15.3 % (11.5-14.5); Segmented Neutrophils % 82.5 %
[2020-01-21 12:55] LABS: White Blood Count 13.5 K/mcL (4.3-11.1)
[2020-01-21 15:23] LABS: BUN/Creatinine Ratio 27 (6-26); Blood Urea Nitrogen 32 mg/dL (8-23); Calcium 8.6 mg/dL (8.6-10.3); Carbon Dioxide 17 mEq/L (23-29); Chloride 113 mEq/L (98-107); Glucose 115 mg/dL (70-105); Magnesium 1.5 mg/dL (1.6-2.6); Osmolality,Calculated 302 (280-300); Phosphorous 2.8 mg/dL (2.7-4.5); Potassium 3.9 mEq/L (3.5-5.1); Sodium 142 mEq/L (136-145); Vancomycin,Trough 9 mcg/mL (5-10); eGFR For African Americans > 60 (> 60); eGFR For Non-African Americans 60 (> 60)
[2020-01-21 15:51] LABS: Thyroid Stimulating Hormone 3.359 mcIU/mL (0.340-5.600)
[2020-01-21] MEDS: *HR* Heparin 5,000 UNIT/ML VIAL SQ SCH (17:33)
[2020-01-21] MEDS ORDERED: Lidocaine -MPF 1% 5 ML AMPUL INFILT ONE (18:29)
[2020-01-21] MEDS ORDERED: methylPREDNISolone 125 MG/2 ML VIAL IVP ONE (18:38)
[2020-01-22 03:08] LABS: Basophils % 0.1 %; Hematocrit 28.3 % (37.5-50.1); Hemoglobin 9.2 g/dL (12.9-16.9); Immature Granulocytes % 0.4 % (0-4); Lymphocytes # 0.6 K/mcL (0.6-4.6); Lymphocytes % 7.3 %; Mean Corpuscular HGB Conc 32.5 g/dL (31.6-35.5); Mean Corpuscular Hemoglobin 32.7 pg (28.0-33.3); Mean Corpuscular Volume 100.7 fL (83.0-100.0); Mean Platelet Volume 11.4 fL (9.4-12.4); Monocytes # 0.1 K/mcL (0.0-1.3); Monocytes % 1.7 %; Platelet Count 122 K/mcL (140-400); Red Blood Count 2.81 M/mcL (4.19-5.50); Red Cell Distribution Width 15.4 % (11.5-14.5); Segmented Neutrophils % 90.5 %; White Blood Count 7.7 K/mcL (4.3-11.1)
[2020-01-22 03:26] LABS: BUN/Creatinine Ratio 28 (6-26); Blood Urea Nitrogen 30 mg/dL (8-23); Calcium 8.3 mg/dL (8.6-10.3); Carbon Dioxide 19 mEq/L (23-29); Chloride 114 mEq/L (98-107); Glucose 222 mg/dL (70-105); Magnesium 1.4 mg/dL (1.6-2.6); Osmolality,Calculated 305 (280-300); Phosphorous 2.6 mg/dL (2.7-4.5); Potassium 3.5 mEq/L (3.5-5.1); Sodium 141 mEq/L (136-145); eGFR For African Americans > 60 (> 60); eGFR For Non-African Americans > 60 (> 60)
[2020-01-22] MEDS ORDERED: Famotidine 20 MG/2 ML VIAL IVP SCH (06:00)
[2020-01-22] MEDS ORDERED: MethylPREDNISolone 40 MG/ML VIAL IVP SCH (06:00)
[2020-01-22] MEDS: Meropenem 1,000 MG in Water for inj. (sterile) 20 ML IVP SCH (06:25)
[2020-01-22] MEDS: *HR* Heparin 5,000 UNIT/ML VIAL SQ SCH ×2 (06:31→17:22)
[2020-01-22] MEDS: 0.9 % Sodium Chloride 1,000 ML IVC SCH (06:35)
[2020-01-22] MEDS ORDERED: Potassium Phosphate 44 MEQ in 0.9 % Sodium Chloride 250 ML IVPB ONE (07:14)
[2020-01-22] MEDS: Insulin LISPRO 300 UNITS/3 ML VIAL SQ SCH ×3 (08:58→18:57)
[2020-01-22] MEDS: Cyanocobalamin (B-12) 1,000 MCG TABLET GTUBE SCH (08:59)
[2020-01-22] MEDS: Aspirin 81 MG TAB.CHEW GTUBE SCH (09:00)
[2020-01-22] MEDS: levoFLOXacin 500 MG/100 ML 500 MG/100 ML BAG IVPB SCH (17:22)
[2020-01-23] MEDS: Insulin LISPRO 300 UNITS/3 ML VIAL SQ SCH ×3 (00:41→12:20)
[2020-01-23] MEDS: *HR* Heparin 5,000 UNIT/ML VIAL SQ SCH (06:28)
[2020-01-23 07:11] LABS: Basophils % 0.3 %; Hematocrit 29.4 % (37.5-50.1); Hemoglobin 9.2 g/dL (12.9-16.9); Immature Granulocytes % 0.5 % (0-4); Lymphocytes # 1.3 K/mcL (0.6-4.6); Mean Corpuscular HGB Conc 31.3 g/dL (31.6-35.5); Mean Corpuscular Hemoglobin 31.1 pg (28.0-33.3); Mean Corpuscular Volume 99.3 fL (83.0-100.0); Mean Platelet Volume 11.6 fL (9.4-12.4); Monocytes # 0.9 K/mcL (0.0-1.3); Monocytes % 7.8 %; Neutrophils # 9.5 K/mcL (1.6-8.9); Platelet Count 142 K/mcL (140-400); Red Blood Count 2.96 M/mcL (4.19-5.50); Red Cell Distribution Width 15.9 % (11.5-14.5); Segmented Neutrophils % 80.4 %
[2020-01-23 07:12] LABS: White Blood Count 11.8 K/mcL (4.3-11.1)
[2020-01-23 07:44] LABS: BUN/Creatinine Ratio 32 (6-26); Blood Urea Nitrogen 34 mg/dL (8-23); Calcium 8.7 mg/dL (8.6-10.3); Carbon Dioxide 20 mEq/L (23-29); Chloride 114 mEq/L (98-107); Glucose 171 mg/dL (70-105); Magnesium 1.9 mg/dL (1.6-2.6); Osmolality,Calculated 308 (280-300); Phosphorous 2.4 mg/dL (2.7-4.5); Potassium 3.7 mEq/L (3.5-5.1); Sodium 143 mEq/L (136-145); eGFR For African Americans > 60 (> 60); eGFR For Non-African Americans > 60 (> 60)
[2020-01-23] MEDS: Cyanocobalamin (B-12) 1,000 MCG TABLET GTUBE SCH (08:09)
[2020-01-23] MEDS: levoFLOXacin 500 MG/100 ML 500 MG/100 ML BAG IVPB SCH (08:09)
[2020-01-23] MEDS: Aspirin 81 MG TAB.CHEW GTUBE SCH (08:09)
[2020-01-23] MEDS ORDERED: Carbidopa/Levodopa 25/100 TABLET PO SCH (09:00)
[2020-01-23 12:20] VITALS: BP 101/70
== END 2020-01-23 15:40 | disposition home health service (06) | DRG 853 ==
LOC: 2NNU 22:41 → EMEROOARM 22:41 → 2NNU 01-18 09:41
PROVIDERS: ADMIT Family Medicine; ATTEND Family Medicine

== ENCOUNTER 2020-01-30 13:50 | Inpatient (IN) ==
[2020-01-30] MEDS ORDERED: Clindamycin 900 MG/50 ML 900 MG/50 ML IV.SOLN IVPB ONE (14:02)
[2020-01-30] MEDS ORDERED: Ertapenem 1,000 MG in 0.9 % Sodium Chloride Mini Bag 100 ML IVPB STA (14:03)
[2020-01-30] MEDS: 0.9 % Sodium Chloride 1,000 ML IVC SCH ×3 (14:10→14:49)
[2020-01-30 14:38] LABS: INR 1.4; Prothrombin Time 16.4 Seconds (9.4-12.1)
[2020-01-30 14:44] LABS: Activated Partial Thrombo Time 19.8 Seconds (26.0-36.0)
[2020-01-30 14:47] LABS: Basophils # 0.1 K/mcL (0.0-0.2); Basophils % 0.5 %; Hematocrit 36.1 % (37.5-50.1); Immature Granulocytes % 0.5 % (0-4); Lymphocytes # 1.8 K/mcL (0.6-4.6); Lymphocytes % 12.2 %; Mean Corpuscular HGB Conc 28.3 g/dL (31.6-35.5); Mean Corpuscular Hemoglobin 32.1 pg (28.0-33.3); Mean Corpuscular Volume 113.5 fL (83.0-100.0); Mean Platelet Volume 11.1 fL (9.4-12.4); Monocytes # 1.1 K/mcL (0.0-1.3); Monocytes % 7.2 %; Neutrophils # 11.9 K/mcL (1.6-8.9); Nucleated Red Blood Cells 0.3 /100 WBC (0); Platelet Count 216 K/mcL (140-400); Red Blood Count 3.18 M/mcL (4.19-5.50); Red Cell Distribution Width 17.2 % (11.5-14.5); Segmented Neutrophils % 79.6 %
[2020-01-30 14:48] LABS: Hemoglobin 10.2 g/dL (12.9-16.9)
[2020-01-30 14:53] LABS: VBG HCO3 27 mEq/L (21-27); VBG PCO2 47 mmHg (41-51); VBG PH 7.36 pH Units (7.32-7.42); VBG PO2 74 mmHg (25-50)
[2020-01-30 14:57] LABS: Bacteria,Urine Few per hpf (None-Few); Bilirubin,Urine Negative (Negative); Blood,Urine Large (Negative); Clarity,Urine Turbid (Clear); Color,Urine Yellow (Yellow); Glucose,Urine (UA) 300 mg/dL (Normal); Ketones,Urine Negative (Negative); Leukocyte Esterase,Urine Large (Negative); Nitrite,Urine Negative (Negative); Protein,Urine 70 mg/dL (Neg-Trace); RBC,Urine TNTC per hpf (0-3); Specific Gravity,Urine 1.016 (1.010-1.025); Squamous Epithelial Cell,Urine Few per hpf (None-Few); Urobilinogen,Urine Normal (Normal); WBC,Urine TNTC per hpf (0-3)
[2020-01-30 15:08] LABS: Anisocytosis 1+ (Not Present); Platelet Estimate Normal (Normal)
[2020-01-30 15:39] LABS: Albumin 2.5 g/dL (3.5-5.7); Albumin/Globulin Ratio 0.6 (1.1-2.2); Bilirubin,Direct 0.2 mg/dL (0.0-0.2); Bilirubin,Indirect 0.3 mg/dL (0.0-1.0); Bilirubin,Total 0.5 mg/dL (0.3-1.0); Calcium 9.6 mg/dL (8.6-10.3); Globulin 3.9 g/dL (2.4-3.5); Magnesium 2.5 mg/dL (1.6-2.6); Phosphorous 3.5 mg/dL (2.7-4.5); Potassium 4.7 mEq/L (3.5-5.1); Total Protein 6.4 g/dL (6.4-8.9); Troponin I 0.92 ng/mL (< 0.04)
[2020-01-30] MEDS ORDERED: Naloxone 0.4 MG/ML INJ IVP PRN (16:45)
[2020-01-30] MEDS ORDERED: Dextrose Gel 15 GM/37.5 ML TUBE PO PRN ×2 (16:45)
[2020-01-30] MEDS ORDERED: *HR* Dextrose 50 % in Water (Vial) 50 ML VIAL IVP PRN (16:45)
[2020-01-30] MEDS ORDERED: D5% in Water 1,000 ML IVC PRN (16:45)
[2020-01-30] MEDS ORDERED: Ondansetron 4 MG/2 ML VIAL IVP PRN (16:45)
[2020-01-30] MEDS ORDERED: 0.9 % Sodium Chloride 1,000 ML IVC ONE (17:48)
[2020-01-30] MEDS: *HR* Heparin 5,000 UNIT/ML VIAL SQ SCH (20:35)
[2020-01-30] MEDS: Insulin LISPRO 300 UNITS/3 ML VIAL SQ SCH (20:36)
[2020-01-30 21:35] LABS: Calcium 9.3 mg/dL (8.6-10.3); Potassium 4.4 mEq/L (3.5-5.1); Troponin I 0.7 ng/mL (< 0.04)
[2020-01-31 00:39] LABS: ABG Base Excess -5 mEq/L (-2 to 3); ABG HCO3 18 mEq/L (21-27); ABG Oxygen Saturation 91 % (95-98); ABG PCO2 25 mmHg (35-45); ABG PH 7.46 pH Units (7.32-7.45); ABG PO2 55 mmHg (85-104); ABG TCO2 18 mEq/L (20-26)
[2020-01-31] MEDS: Insulin LISPRO 300 UNITS/3 ML VIAL SQ SCH ×4 (00:57→18:24)
[2020-01-31 01:45] LABS: Immature Granulocytes % 0.4 % (0-4)
[2020-01-31 01:46] LABS: Basophils # 0.1 K/mcL (0.0-0.2); Basophils % 0.5 %; Hematocrit 36.6 % (37.5-50.1); Hemoglobin 10.3 g/dL (12.9-16.9); Lymphocytes # 1.5 K/mcL (0.6-4.6); Lymphocytes % 7.9 %; Mean Corpuscular HGB Conc 28.1 g/dL (31.6-35.5); Mean Corpuscular Hemoglobin 32.2 pg (28.0-33.3); Mean Corpuscular Volume 114.4 fL (83.0-100.0); Monocytes # 0.8 K/mcL (0.0-1.3); Monocytes % 4.4 %; Neutrophils # 16.6 K/mcL (1.6-8.9); Nucleated Red Blood Cells 0.2 /100 WBC (0); Platelet Count 203 K/mcL (140-400); Red Cell Distribution Width 16.9 % (11.5-14.5); Segmented Neutrophils % 86.8 %; White Blood Count 19.1 K/mcL (4.3-11.1)
[2020-01-31 02:04] LABS: Macrocytosis Present (Not Present); Platelet Estimate Normal (Normal)
[2020-01-31 03:47] LABS: Calcium 9.1 mg/dL (8.6-10.3); Magnesium 2.2 mg/dL (1.6-2.6); Phosphorous 3.6 mg/dL (2.7-4.5); Troponin I 0.55 ng/mL (< 0.04)
[2020-01-31] MEDS: *HR* Heparin 5,000 UNIT/ML VIAL SQ SCH ×2 (04:54→18:27)
[2020-01-31] MEDS ORDERED: D5% in 0.45% NACL 1,000 ML IVC SCH ×2 (08:45→14:58)
[2020-01-31] MEDS: polyethylene glycoL 3350 17 GM POWD.PACK GTUBE SCH (10:07)
[2020-01-31] MEDS: Sennosides/Docusate Sodium TABLET GTUBE SCH ×2 (10:07→23:27)
[2020-01-31] MEDS: Carbidopa/Levodopa 25/100 TABLET GTUBE SCH ×3 (10:07→23:27)
[2020-01-31] MEDS: Aspirin 81 MG TAB.CHEW GTUBE SCH (10:07)
[2020-02-01] MEDS: Insulin LISPRO 300 UNITS/3 ML VIAL SQ SCH ×4 (00:37→17:17)
[2020-02-01 01:26] LABS: Hematocrit 37.5 % (37.5-50.1); Hemoglobin 10.6 g/dL (12.9-16.9); Mean Corpuscular HGB Conc 28.3 g/dL (31.6-35.5); Mean Corpuscular Hemoglobin 32.6 pg (28.0-33.3); Mean Corpuscular Volume 115.4 fL (83.0-100.0); Mean Platelet Volume 11.1 fL (9.4-12.4); Platelet Count 185 K/mcL (140-400); Red Blood Count 3.25 M/mcL (4.19-5.50); Red Cell Distribution Width 16.2 % (11.5-14.5); White Blood Count 17.8 K/mcL (4.3-11.1)
[2020-02-01 01:41] LABS: Potassium 4.4 mEq/L (3.5-5.1)
[2020-02-01] MEDS ORDERED: Acetaminophen 325 MG TABLET PO PRN (03:33)
[2020-02-01] MEDS: *HR* Heparin 5,000 UNIT/ML VIAL SQ SCH (06:29)
[2020-02-01] MEDS: Sennosides/Docusate Sodium TABLET GTUBE SCH ×2 (08:17→19:22)
[2020-02-01] MEDS: Carbidopa/Levodopa 25/100 TABLET GTUBE SCH ×3 (08:17→19:22)
[2020-02-01] MEDS: polyethylene glycoL 3350 17 GM POWD.PACK GTUBE SCH (08:17)
[2020-02-01] MEDS: Aspirin 81 MG TAB.CHEW GTUBE SCH (08:17)
[2020-02-01] MEDS ORDERED: 0.9 % Sodium Chloride 500 ML IVC ONE (09:30)
[2020-02-01 09:39] LABS: Adenovirus Not Detected (Not Detect); Bordetella Pertussis Not Detected (Not Detect); Chlamydophila pneumoniae Not Detected (Not Detect); Coronavirus 229E Not Detected (Not Detect); Coronavirus HKU1 Not Detected (Not Detect); Coronavirus NL63 Not Detected (Not Detect); Coronavirus OC43 Not Detected (Not Detect); Human Metapneumovirus Not Detected (Not Detect); Human Rhinovirus/Enterovirus Not Detected (Not Detect); Influenza A Subtype 2009 H1 Not Detected (Not Detect); Influenza B Not Detected (Not Detect); Mycoplasma pneumoniae Not Detected (Not Detect); Parainfluenza Virus 1 Not Detected (Not Detect); Parainfluenza Virus 2 Not Detected (Not Detect); Parainfluenza Virus 3 Not Detected (Not Detect); Parainfluenza Virus 4 Not Detected (Not Detect); Respiratory Syncytial Virus Not Detected (Not Detect); SARS-CoV-2 Not Detected (Not Detect)
[2020-02-01] MEDS ORDERED: Fluconazole 200 MG/100 ML 200 MG/100 ML BAG IVPB ONE (11:27)
[2020-02-01] MEDS ORDERED: Leptospermum Honey Gel 44 ML TUBE TP SCH (13:00)
[2020-02-01] MEDS ORDERED: Atropine Sulfate 1% 40 DROP/2 ML BOTTLE SL PRN (15:29)
[2020-02-02] MEDS: Insulin LISPRO 300 UNITS/3 ML VIAL SQ SCH ×2 (00:38→05:10)
[2020-02-02] MEDS: *HR* LORazepam Oral Conc 2 MG/ML SL PRN ×3 (08:29→16:29)
[2020-02-02] MEDS: Sennosides/Docusate Sodium TABLET GTUBE SCH (08:30)
[2020-02-02] MEDS: polyethylene glycoL 3350 17 GM POWD.PACK GTUBE SCH (08:30)
[2020-02-02] MEDS: Carbidopa/Levodopa 25/100 TABLET GTUBE SCH (08:30)
[2020-02-02] MEDS: Aspirin 81 MG TAB.CHEW GTUBE SCH (08:30)
[2020-02-02] MEDS ORDERED: Fluconazole 100 MG/50 ML 100 MG/50 ML BAG IVPB SCH (09:00)
[2020-02-02 15:27] VITALS: BP 96/62
== END 2020-02-02 22:14 | disposition expired | DRG 871 ==
LOC: 2NNU 13:50 → EMEROOARM 13:50 → 2NNU 18:45 → SUATTDRO 20:56 → 2ANU 02-01 14:38
PROVIDERS: ADMIT Internal Medicine; ATTEND Internal Medicine